=== PATIENT | male | born 1940 | race Caucasian/White ===

== ENCOUNTER 2016-12-15 20:49 | Emergency (ER) | payer MEDICARE, BC ==
[2016-12-15 21:04] VITALS: BP 203/94
--- NOTE | 2016-12-15 21:46 | EDM.PDOC ---
ED HPI GENERAL MEDICAL PROBLEM - General Chief Complaint: Cardiovascular Problem Stated Complaint: HIGH BLOOD PRESSURE Time Seen by Provider: 12/15/16 21:00 Source of Information: Reports: Patient, Family (), RN Notes Reviewed History Limitations: Reports: No Limitations - History of Present Illness INITIAL COMMENTS - FREE TEXT/NARRATIVE: The patient states that he sought Dr. Quiroz earlier today due to a knee problem , and while there, he was told that his blood pressure was elevated, around 195/ 90. He went from there to the clinic, where he was told that his pressure was similarly elevated. He was seen by Dr. Gee who instructed the patient to discontinue his lisinopril, and a new antihypertensive medication was prescribed along with allopurinol. The patient went home. Around 15:00 he checked his own blood pressure and found it to be 154/82 with a HR of 53. At 20:30 he rechecked it again and found it to be 183/106 with a HR of 50, then at 20:40 he checked it again and found it to be 181/102 with a HR of 51. The highest BP here in the ED is 219/95. The patient states that he feels fine. He denies having a headache or blurry vision. - Related Data Allergies Allergy/AdvReac Type Severity Reaction Status Date / Time No Known Allergies Allergy Verified 12/15/16 20:56 Home Meds: Home Meds Albuterol/Ipratropium [Combivent Respimat] 2 puff INH BID 04/04/15 [History] Budesonide/Formoterol [Symbicort 160-4.5 MCG] 2 puff INH BID 04/04/15 [History] Doxazosin Mesylate [Cardura] 4 mg PO DAILY 04/04/15 [History] Furosemide 20 mg PO DAILY 04/04/15 [History] Nebivolol HCl [Bystolic] 10 mg PO DAILY 04/04/15 [History] Omeprazole 20 mg PO DAILY 04/04/15 [History] Diazepam [Valium] 1 tab PO Q8H PRN #16 tablet 11/21/15 [Rx] Past Medical History Cardiovascular History: Reports: High Cholesterol (untreated), Hypertension Respiratory History: Reports: COPD, Sleep Apnea (nightly CPAP 10) Gastrointestinal History: Reports: GERD, PUD Musculoskeletal History: Reports: Gout (suspected) Neurological History: Reports: Neuropathy, Peripheral (left lumbar) - Past Surgical History Neurological Surgical History: Reports: Lumbar Spine (L3, L4 laminectomy 05/2016 ) Musculoskeletal Surgical History: Reports: ORIF (right clavicle) Social & Family History - Tobacco Use Smoking Status *Q: Former Smoker Years of Tobacco use: 20 Packs/Tins Daily: 1 Used Tobacco, but Quit: Yes Month Tobacco Last Used: Around 1976 - Caffeine Use Caffeine Use: Reports: Coffee - Alcohol Use Alcohol Use History: Yes Alcohol Use Frequency: Socially - Recreational Drug Use Recreational Drug Use: No - Living Situation & Occupation Living situation: Reports: , with Spouse Occupation: Retired ED ROS GENERAL - Review of Systems Review Of Systems: See Below Constitutional: Reports: No Symptoms HEENT: Reports: No Symptoms Respiratory: Reports: No Symptoms Cardiovascular: Reports: No Symptoms Endocrine: Reports: No Symptoms GI/Abdominal: Reports: No Symptoms : Reports: No Symptoms Musculoskeletal: Reports: No Symptoms Skin: Reports: No Symptoms Neurological: Reports: No Symptoms Psychiatric: Reports: No Symptoms Hematologic/Lymphatic: Reports: No Symptoms Immunologic: Reports: No Symptoms ED EXAM, GENERAL - Physical Exam Exam: See Below Exam Limited By: No Limitations General Appearance: Alert, WD/WN, No Apparent Distress Eye Exam: Bilateral Eye: Normal Inspection Ears: Normal External Exam, Hearing Grossly Normal Ear Exam: Bilateral Ear: Auricle Normal Nose: Normal Inspection, No Blood Throat/Mouth: Normal Inspection, Normal Lips, Normal Voice, No Airway Compromise Head: Atraumatic, Normocephalic Neck: Normal Inspection, Full Range of Motion Respiratory/Chest: No Respiratory Distress, Lungs Clear, Normal Breath Sounds, No Accessory Muscle Use Cardiovascular: Normal Peripheral Pulses, Regular Rate, Rhythm, No Gallop, No JVD, No Murmur, No Rub Peripheral Pulses: 4+: Radial (L), Radial (R) GI/Abdominal: Normal Bowel Sounds, Soft, Non-Tender, No Organomegaly, No Distention, No Abnormal Bruit, No Mass (Male) Exam: Deferred Rectal (Males) Exam: Deferred Back Exam: Normal Inspection, Full Range of Motion, NT Extremities: Normal Inspection, Normal Range of Motion, No Pedal Edema, Normal Capillary Refill Neurological: Alert, Oriented, Normal Cognition, No Motor/Sensory Deficits Psychiatric: Normal Affect Skin Exam: Warm, Dry, Intact, Normal Color, No Rash Lymphatic: No Adenopathy Course - Vital Signs Last Recorded V/S: Last Vital Signs Temp 35.6 C 12/15/16 20:56 Pulse 53 L 12/15/16 20:56 Resp 16 12/15/16 20:56 BP 203/94 H 12/15/16 20:56 Pulse Ox 96 12/15/16 20:56 - Re-Assessments/Exams Free Text/Narrative Re-Assessment/Exam: 12/15/16 21:39 The patient's blood pressure is elevated, however, not so high that intervention is required, and his blood pressure medications were just changed today. I am recommending that in 2 weeks his begin checking his blood pressure as per guidelines, then followup with their PCP. Departure - Departure Time of Disposition: 21:41 Disposition: Home, Self-Care 01 Condition: good Clinical Impression: Hypertension Instructions: Hypertension Referrals: Russel Mccloud MD [Primary Care Provider] - Forms: ED Department Discharge Additional Instructions: You were seen in the emergency room for concern about elevated blood pressure. The nature of hypertension, and how to measure it, was discussed. Since your blood pressure medicine was just changed today, you do not to check your blood pressure for the next 2 weeks. In 2 weeks, have your check your blood pressure 2 to 3 times a week, for 2 to 3 weeks. This must be done under RESTFUL CONDITIONS, meaning that you are sitting quietly for at least 5, and preferably 15 minutes, that you are not in pain, not anxious, and not ill. Have her write the blood pressure numbers down without telling you their value. After 2-3 weeks, take those numbers to Dr. Mccloud for interpretation. If any other problems, please do not hesitate to return to the ER.
== END 2016-12-15 22:15 | disposition home or self-care (01) ==
LOC: JD.ED 20:49
DX: I10 Essential (primary) hypertension (principal); E78.00 Pure hypercholesterolemia, unspecified; G47.30 Sleep apnea, unspecified; Z98.890 Other specified postprocedural states; Z87.891 Personal history of nicotine dependence; Z79.899 Other long term (current) drug therapy
CPT/HCPCS: 99283

== ENCOUNTER 2016-12-19 10:00 | Emergency (ER) | payer MEDICARE, BC ==
--- NOTE | 2016-12-19 10:48 | EDM.PDOC ---
ED HPI GENERAL MEDICAL PROBLEM - General Chief Complaint: Chest Pain Stated Complaint: CHEST PAIN Time Seen by Provider: 12/19/16 10:46 Source of Information: Reports: Patient, Family (spouse) History Limitations: Reports: No Limitations - History of Present Illness INITIAL COMMENTS - FREE TEXT/NARRATIVE: 76-year-old male presents to the ED with recurrent left precordial chest pains that awoke him from sleep initially about 0530 hours this morning. Pain tends to be sharp and stabbing He has history of coronary disease with previous inferior wall myocardial infarction. He denies feeling any more short of breath than normal. He has a dry chronic hacking cough for which his medication was changed recently. It was thought that perhaps lisinopril was causing him to have the dry nonproductive cough. It was stopped and replaced replaced with Valsartan 320 mg daily. Pain has come and gone about 5 or 6 times this morning. No associated shortness of breath or lightheadedness or dizziness. 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 Onset: Sudden Onset Date: 12/19/16 Onset Time: 05:30 Duration: Hour(s):, Intermittent, Waxing/Waning Location: Reports: Chest Quality: Reports: Sharp, Stabbing Severity: Moderate Improves with: Reports: None Worsens with: Reports: None Context: Denies: Activity, Exercise, Lifting, Sick Contact, Trauma, Other Associated Symptoms: Reports: Chest Pain, Cough. 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: Reports: Other (see below) (No) - Related Data Allergies Allergy/AdvReac Type Severity Reaction Status Date / Time No Known Allergies Allergy Verified 12/19/16 10:11 Home Meds: Home Meds Albuterol/Ipratropium [Combivent Respimat] 2 puff INH BID 04/04/15 [History] Budesonide/Formoterol [Symbicort 160-4.5 MCG] 2 puff INH BID 04/04/15 [History] Doxazosin Mesylate [Cardura] 4 mg PO DAILY 04/04/15 [History] Furosemide 20 mg PO DAILY 04/04/15 [History] Nebivolol HCl [Bystolic] 10 mg PO DAILY 04/04/15 [History] Omeprazole 20 mg PO DAILY 04/04/15 [History] Diazepam [Valium] 1 tab PO Q8H PRN #16 tablet 11/21/15 [Rx] Allopurinol [Zyloprim] 100 mg PO DAILY 12/19/16 [History] Valsartan 320 mg PO DAILY 12/19/16 [History] Past Medical History Cardiovascular History: Reports: High Cholesterol, Hypertension, [place] (Inferior wall by ECG assessment.) Respiratory History: Reports: COPD, Sleep Apnea Other Respiratory History: empysema, Wears a Cpap Gastrointestinal History: Reports: GERD, PUD Musculoskeletal History: Reports: Gout Neurological History: Reports: Neuropathy, Peripheral Other Neuro History: left lateral thigh numbness - Past Surgical History Neurological Surgical History: Reports: Lumbar Spine Other Neurological Surgeries/Procedures: L 3 4 5 Musculoskeletal Surgical History: Reports: ORIF Social & Family History - Tobacco Use Smoking Status *Q: Former Smoker Years of Tobacco use: 20 Packs/Tins Daily: 1 Used Tobacco, but Quit: No Month Tobacco Last Used: Around 1976 - Caffeine Use Caffeine Use: Reports: Coffee - Recreational Drug Use Recreational Drug Use: No - Living Situation & Occupation Living situation: Reports: , with Spouse Occupation: Retired ED ROS GENERAL - Review of Systems Review Of Systems: See Below Constitutional: Denies: Fever, Chills, Malaise, Weakness, Decreased Appetite HEENT: Reports: No Symptoms Respiratory: Reports: Cough. Denies: Shortness of Breath, Wheezing, Pleuritic Chest Pain, Sputum (Nonproductive cough.), Hemoptysis, Other Cardiovascular: Reports: Blood Pressure Problem, Dyspnea on Exertion. Denies: Claudication (Recently hypertension out of control and medications were changed last week), Edema, Lightheadedness, Orthopnea, Palpitations (Sometime) Endocrine: Reports: No Symptoms GI/Abdominal: Reports: No Symptoms : Reports: Other (Nocturia x3. Slow urinary stream) Musculoskeletal: Reports: Back Pain (Tonic low back pain with left-sided paresthesias in L5 nerve root distribution. Previous laminectomy disc discectomy ) Skin: Reports: No Symptoms Neurological: Reports: Numbness, Paresthesia (Left lateral but soft and leg to the knee.), Tingling ED EXAM, GENERAL - Physical Exam Exam: See Below Exam Limited By: No Limitations General Appearance: Alert, WD/WN, Anxious, Mild Distress Eye Exam: Bilateral Eye: Normal Inspection Head: Atraumatic, Other Neck: Normal Inspection, Supple, Non-Tender, Full Range of Motion. No: Carotid Bruit, Lymphadenopathy (L), Lymphadenopathy (R) Respiratory/Chest: No Respiratory Distress, Lungs Clear, Normal Breath Sounds, No Accessory Muscle Use, Other (No identifiable source of pain on palpation of the chest wall.) Cardiovascular: Regular Rate, Rhythm, No Edema, No Gallop, No Murmur, No Rub. No: Normal Peripheral Pulses GI/Abdominal: Normal Bowel Sounds, Soft, Non-Tender, No Organomegaly, No Distention Extremities: Normal Inspection, Normal Range of Motion, Non-Tender, No Pedal Edema, Normal Capillary Refill Neurological: Alert, Oriented, CN II-XII Intact, Normal Cognition, Normal Gait EKG INTERPRETATION EKG Date: 12/19/16 Time: 10:05 Rhythm: other (Sinus bradycardia at 51 per minute) Rate (beats/min): 51 Venus: LAD-left axis deviation (-32. Consider left anterior fascicular block) P-wave: enlarged QRS: other (Borderline criteria for left ventricular hypertrophy Q waves in leads 3 and aVF compatible with an old inferior wall myocardial infarction.) ST-T: normal QT: prolonged (Mildly prolonged) Course - Vital Signs Last Recorded V/S: Last Vital Signs Temp 36.6 C 12/19/16 10:07 Pulse 62 12/19/16 13:25 Resp 12 12/19/16 13:25 BP 148/70 H 12/19/16 13:25 Pulse Ox 100 12/19/16 13:25 - Orders/Labs/Meds Orders: Active Orders 24 hr Category Date Time Status EKG Documentation Completion [RC] STAT Care 12/19/16 11:29 Active Labs: Laboratory Tests 12/19/16 12/19/16 12/19/16 Range/Units 10:12 10:12 10:12 WBC 7.58 (4.23-9.07) K/mm3 RBC 5.13 (4.63-6.08) M/mm3 Hgb 14.5 (13.7-17.5) gm/L Hct 44.7 (40.1-51.0) % MCV 87.1 (79.0-92.2) fl MCH 28.3 (25.7-32.2) pg MCHC 32.4 (32.2-35.5) g/dl RDW Std Deviation 48.2 H (35.1-43.9) fL Plt Count 210 (163-337) K/mm3 MPV 10.8 (9.4-12.3) fl Neutrophils % (Manual) 51 (40-60) % Band Neutrophils % 0 (0-10) % Lymphocytes % (Manual) 28 (20-40) % Atypical Lymphs % 0 % Monocytes % (Manual) 13 H (2-10) % Eosinophils % (Manual) 8 H (0.8-7.0) % Basophils % (Manual) 0 L (0.2-1.2) Platelet Estimate Adequate RBC Morph Comment Normal D-Dimer, Quantitative (0.19-0.59) mg/L Sodium 143 (136-145) mEq/L Potassium 4.2 (3.5-5.1) mEq/L Chloride 109 H (98-107) mEq/L Carbon Dioxide 24 (21-32) mEq/L Anion Gap 14.2 (5-15) BUN 16 (7-18) mg/dL Creatinine 1.1 (0.7-1.3) mg/dL Est Cr Clr Drug Dosing 59.90 mL/min Estimated GFR (MDRD) > 60 (>60) mL/min BUN/Creatinine Ratio 14.5 (14-18) Glucose 110 (83-115) mg/dL Calcium 8.7 (8.5-10.1) mg/dL Total Bilirubin 0.4 (0.2-1.0) mg/dL AST 33 (15-37) U/L ALT 36 (16-63) U/L Alkaline Phosphatase 99 (46-116) U/L Creatine Kinase (39-308) U/L CK-MB (CK-2) 21.3 H (0-3.6) ng/ml Troponin I 0.024 (0.00-0.056) ng/mL C-Reactive Protein 1.7 H* (<1.0) mg/dL B-Natriuretic Peptide 128 H (0-100) pg/mL Total Protein 7.3 (6.4-8.2) g/dl Albumin 3.8 (3.4-5.0) g/dl Globulin 3.5 gm/dL Albumin/Globulin Ratio 1.1 (1-2) TSH 3rd Generation (0.358-3.74) uIU/mL 12/19/16 12/19/16 Range/Units 10:12 10:12 WBC (4.23-9.07) K/mm3 RBC (4.63-6.08) M/mm3 Hgb (13.7-17.5) gm/L Hct (40.1-51.0) % MCV (79.0-92.2) fl MCH (25.7-32.2) pg MCHC (32.2-35.5) g/dl RDW Std Deviation (35.1-43.9) fL Plt Count (163-337) K/mm3 MPV (9.4-12.3) fl Neutrophils % (Manual) (40-60) % Band Neutrophils % (0-10) % Lymphocytes % (Manual) (20-40) % Atypical Lymphs % % Monocytes % (Manual) (2-10) % Eosinophils % (Manual) (0.8-7.0) % Basophils % (Manual) (0.2-1.2) Platelet Estimate RBC Morph Comment D-Dimer, Quantitative 1.03 H (0.19-0.59) mg/L Sodium (136-145) mEq/L Potassium (3.5-5.1) mEq/L Chloride (98-107) mEq/L Carbon Dioxide (21-32) mEq/L Anion Gap (5-15) BUN (7-18) mg/dL Creatinine (0.7-1.3) mg/dL Est Cr Clr Drug Dosing mL/min Estimated GFR (MDRD) (>60) mL/min BUN/Creatinine Ratio (14-18) Glucose (83-115) mg/dL Calcium (8.5-10.1) mg/dL Total Bilirubin (0.2-1.0) mg/dL AST (15-37) U/L ALT (16-63) U/L Alkaline Phosphatase (46-116) U/L Creatine Kinase 497 H (39-308) U/L CK-MB (CK-2) (0-3.6) ng/ml Troponin I (0.00-0.056) ng/mL C-Reactive Protein (<1.0) mg/dL B-Natriuretic Peptide (0-100) pg/mL Total Protein (6.4-8.2) g/dl Albumin (3.4-5.0) g/dl Globulin gm/dL Albumin/Globulin Ratio (1-2) TSH 3rd Generation 1.571 (0.358-3.74) uIU/mL - Radiology Interpretation Free Text/Narrative:: 76-year-old male presents the ED with intermittent left precordial chest pain in the distribution of the fourth fifth intercostal space. Pain is intermittently sharp and stabbing in seems to be be positional at times. Unable to localize any source of pain on examination. ECG shows sinus bradycardia at 51 per minutes with some evidence of left ventricular hypertrophy and evidence of an old inferior wall myocardial infarction. Pain is not felt to be cardiac it is likely musculoskeletal by history alone. Plan a chest x-ray will be done with routine labs to include cardiac markers. - Re-Assessments/Exams Free Text/Narrative Re-Assessment/Exam: 12/19/16 11:53 portable chest x-ray reveals mild cardiomegaly. Visualized lung prasad are clear. There is soft tissue density overlying the left costophrenic angle. Lab work revealed a normal white count at 7.58 a normal hemoglobin of 14.5. Platelets 210,000. Chemistry shows a sodium of 143 potassium 4.2 chloride 109. Anion gap is 14.2. Fatty was 1.1. CK-MB fraction is elevated at 21.3. Troponin is normal at 0.024. BP is 128. I therefore elect total CPK as well as a TSH to see why the CK-MB is elevated without an elevated troponin. It is felt to be unlikely due to a cardiac component. 12/19/16 13:00 TSH 1.57 . Total CPK is elevated at 497. If I think the CK-MB fraction is elevated secondary to total CPK elevation. Of note reason for the total CPK elevation is not evident. He is not on any statins according to his med list. He'll be discharged to home. Diagnosis is noncardiac chest pain. He' ll be discharged to home. Advise when he sees Dr. Flores in the next few weeks for blood pressure review . It might be worthwhile having labs drawn again to see what his total CPK value is. No obvious etiology for this is identified since his thyroid function is also normal. Occult disease process such as developing polymyalgia rheumatica .? Departure - Departure Time of Disposition: 13:11 Disposition: Home, Self-Care 01 Condition: fair Clinical Impression: Non-cardiac chest pain, Chest wall pain, Elevated creatine phosphokinase level Instructions: Chest Wall Pain, [id number] Referrals: Russel Mccloud MD [Primary Care Provider] - Forms: ED Department Discharge Additional Instructions: Evaluation in the emergency room today in regards to left precordial chest pain that started bothering about 5:30 this morning. Pain is intermittent sharp and stabbing. Examination reveals normal sounding heart and lungs. Chest x-ray crew to be normal as well heart tracings revealed evidence of a likely old heart attack involving the back wall of the heart but nothing new. Blood tests were therefore done and revealed an elevation of one of the cardiac markers called CK -MB. Further blood tests were then required to make sure that there was no connection to the heart muscle. The total CPK is elevated for an unknown reason. Usually represents and inflammation in the muscle tissues. There is no evidence of heart related problems today. Currently pain is chest wall in origin likely muscles in between the ribs between the fourth and fifth rib on the left side. Treatment is Aleve 2 tablets every 8 hours as needed to relieve pain and discomfort. The spectra may need to do this for the next 3 or 4 days but then it should go away. If it continues to get worse cough over the next 3- 4 days then he should be seen again. - My Orders Last 24 Hours: My Active Orders 12/19/16 11:29 EKG Documentation Completion [RC] STAT - Assessment/Plan Last 24 Hours: My Active Orders 12/19/16 11:29 EKG Documentation Completion [RC] STAT
--- NOTE | 2016-12-19 11:42 | CR ---
Chest: Portable view of the chest was obtained. Comparison: Previous chest x-ray 04/04/15. Heart size and mediastinum are normal. Minimal scarring is seen within the left base. Lungs otherwise are clear. Orthopedic material is seen within the right clavicle from previous fracture. No acute bony abnormality is seen. Impression: 1. Nothing acute is seen on portable chest x-ray. Diagnostic code #2
[2016-12-19 14:05] VITALS: BP 148/70
== END 2016-12-19 13:30 | disposition home or self-care (01) ==
LOC: JD.ED 10:00
DX: R07.89 Other chest pain (principal); R74.8 Abnormal levels of other serum enzymes; I25.2 Old myocardial infarction; I10 Essential (primary) hypertension; E78.00 Pure hypercholesterolemia, unspecified; K21.9 Gastro-esophageal reflux disease without esophagitis; J44.9 Chronic obstructive pulmonary disease, unspecified; M10.9 Gout, unspecified; Z98.890 Other specified postprocedural states; Z79.899 Other long term (current) drug therapy; Z87.891 Personal history of nicotine dependence
CPT/HCPCS: 36415; 71010; 71010-26; 80053; 82550; 82553; 83880; 84443; 84484; 85025; 85379; 86140; 93005; 99282; 99285-25

== ENCOUNTER 2019-03-16 15:59 | Emergency (ER) | payer MEDICARE, BC ==
[2019-03-16 16:53] VITALS: BP 145/88
--- NOTE | 2019-03-16 17:41 | EDM.PDOC ---
ED HPI GENERAL MEDICAL PROBLEM - General Chief Complaint: Skin Complaint Stated Complaint: WOUND ON BACK Time Seen by Provider: 03/16/19 17:23 Source of Information: Reports: Patient History Limitations: Reports: No Limitations - History of Present Illness INITIAL COMMENTS - FREE TEXT/NARRATIVE: 78 year old male presents for evaluation of a wound to the back. Patient has a mole removed with Dr. Kruse on 03/04/19. He felt that it was infected and follow- up with Sosa Carvajal NP. Area was opened and packed. No anabiotics started. Followed-up with PCP but did not feel antibiotics were indicated. Feels the wound is not healing. has been packing the wound daily. Has appreciated pus from the area. Also has slight swelling, surrounding erythema and increased warmth. Manny any fevers, chills, nausea or vomiting. - Related Data Allergies Allergy/AdvReac Type Severity Reaction Status Date / Time No Known Allergies Allergy Verified 12/19/16 10:11 Home Meds: Home Meds Albuterol/Ipratropium [Combivent Respimat] 2 puff INH BID 04/04/15 [History] Budesonide/Formoterol [Symbicort 160-4.5 MCG] 2 puff INH BID 04/04/15 [History] Doxazosin Mesylate [Cardura] 4 mg PO DAILY 04/04/15 [History] Furosemide 20 mg PO DAILY 04/04/15 [History] Nebivolol HCl [Bystolic] 10 mg PO DAILY 04/04/15 [History] Omeprazole 20 mg PO DAILY 04/04/15 [History] Diazepam [Valium] 1 tab PO Q8H PRN #16 tablet 11/21/15 [Rx] Allopurinol [Zyloprim] 100 mg PO DAILY 12/19/16 [History] Valsartan 320 mg PO DAILY 12/19/16 [History] Doxycycline [Vibramycin] 100 mg PO DAILY #20 tab 03/16/19 [Rx] Past Medical History Cardiovascular History: Reports: High Cholesterol, Hypertension, [place] (Inferior wall by ECG assessment.) Respiratory History: Reports: COPD, Sleep Apnea Other Respiratory History: empysema, Wears a Cpap Gastrointestinal History: Reports: GERD, PUD Musculoskeletal History: Reports: Gout Neurological History: Reports: Neuropathy, Peripheral Other Neuro History: left lateral thigh numbness - Past Surgical History Neurological Surgical History: Reports: Lumbar Spine Other Neurological Surgeries/Procedures: L 3 4 5 Musculoskeletal Surgical History: Reports: ORIF Social & Family History - Caffeine Use Caffeine Use: Reports: Coffee - Living Situation & Occupation Living situation: Reports: , with Spouse Occupation: Retired ED ROS GENERAL - Review of Systems Review Of Systems: See Below Constitutional: Denies: Fever, Chills GI/Abdominal: Denies: Nausea, Vomiting Skin: Reports: Wound (wound from recent mole removal packed, surrounding erythema , prurletn discharge from area) ED EXAM, SKIN/RASH Exam: See Below Exam Limited By: No Limitations General Appearance: Alert, WD/WN, No Apparent Distress Respiratory/Chest: No Respiratory Distress Neurological: Alert, Oriented, Normal Cognition, Normal Gait Psychiatric: Normal Affect, Normal Mood Skin: Warm, Dry, Normal Color, Erythema, Wound/Incision (approximately 1cm wound from recent mole removal, packed, necrotic tissue presnet in the inside of the wound, minor surrounding erythema, when presure was applied to the wound able to express prurlent materal from the surrounding area, small amount; increased warmth and small amount of swelling noted) Location, Skin: Back Course - Vital Signs Last Recorded V/S: Last Vital Signs Temp 97.7 F 03/16/19 16:42 Pulse 88 03/16/19 16:42 Resp 18 03/16/19 16:42 BP 145/88 H 03/16/19 16:42 Pulse Ox 100 03/16/19 16:42 - Re-Assessments/Exams Free Text/Narrative Re-Assessment/Exam: 03/16/19 17:33 culture obtained of the area. Will start on antibiotics. Discharge instructions as documented. Departure - Departure Time of Disposition: 17:38 Disposition: Home, Self-Care 01 Condition: Good Clinical Impression: Cellulitis - Discharge Information *PRESCRIPTION DRUG MONITORING PROGRAM REVIEWED*: No *COPY OF PRESCRIPTION DRUG MONITORING REPORT IN PATIENT NERI: No Prescriptions: Doxycycline [Vibramycin] 100 mg PO DAILY #20 tab Instructions: Cellulitis, Adult, [id number] Referrals: Dennsi Terrell MD [Primary Care Provider] - Forms: ED Department Discharge Additional Instructions: Follow-up with your surgeon or your primary care provider as planned for further management of this. Doxycycline 1 tab twice a day for 10 days unless directed otherwise by surgery or your primary care provider. Continue to pack the wound daily as instructed. may take [id number] Tylenol or Motrin as need for pain relief. Please return to the ER if your symptoms change or worsen.
== END 2019-03-16 18:06 | disposition home or self-care (01) ==
LOC: JD.ED 15:59
DX: L03.312 Cellulitis of back [any part except buttock and flank] (principal); J44.9 Chronic obstructive pulmonary disease, unspecified; I10 Essential (primary) hypertension; I25.2 Old myocardial infarction; K21.9 Gastro-esophageal reflux disease without esophagitis; Z79.899 Other long term (current) drug therapy
CPT/HCPCS: 87070; 99283

== ENCOUNTER 2020-05-15 21:13 | Day surgery (SDC) | payer MEDICARE, BC ==
[2020-05-15] MEDS ORDERED: fentaNYL 100 MCG/2 ML SDV IVPUSH ONE (21:43)
[2020-05-15] MEDS ORDERED: Sodium Chloride 0.9% 10 ML Syringe FLUSH PRN (21:43)
[2020-05-15] MEDS ORDERED: Glucagon,Human Recombinant 1 MG Vial IVPUSH ONE (21:43)
[2020-05-15] MEDS ORDERED: Metoclopramide 10 MG/2 ML SDV IVPUSH ONE (21:43)
--- NOTE | 2020-05-15 21:48 | EDM.PDOC ---
<Esme Umaña V - Last Filed: 05/15/20 23:50> ED HPI GENERAL MEDICAL PROBLEM - General Chief Complaint: General Stated Complaint: COUGHING UP MUCUS Time Seen by Provider: 05/15/20 21:39 Source of Information: Reports: Patient, RN Notes Reviewed History Limitations: Reports: No Limitations - History of Present Illness INITIAL COMMENTS - FREE TEXT/NARRATIVE: Patient is an 80-year-old male who presents to the ED for the evaluation of his difficulty swallowing. Patient states that around 5:30 PM, he was eating some beef, carrots and potatoes, when he had a feeling of not being able to swallow, or keep any fluids down by mouth shortly after eating the beef. He notes he has never had an issue with this before. He is not having any other signs or sy mptoms of respiratory illness, no shortness of breath, states he is having some cough but he is coughing up a clear mucus. He is not having any sore throat, or any chest pain. He has been feeling well prior to this. He has a little bit of nausea, he has not vomited but is spitting up clear mucus. - Related Data Allergies Allergy/AdvReac Type Severity Reaction Status Date / Time No Known Allergies Allergy Verified 05/15/20 21:25 Home Meds: Home Meds Albuterol/Ipratropium [Combivent Respimat] 2 puff INH BID 04/04/15 [History] Budesonide/Formoterol [Symbicort 160-4.5 MCG] 2 puff INH BID 04/04/15 [History] Doxazosin Mesylate [Cardura] 4 mg PO DAILY 04/04/15 [History] Furosemide 20 mg PO DAILY 04/04/15 [History] Nebivolol HCl [Bystolic] 10 mg PO DAILY 04/04/15 [History] Omeprazole 20 mg PO DAILY 04/04/15 [History] diazePAM [Valium] 1 tab PO Q8H PRN #16 tablet 11/21/15 [Rx] Allopurinol [Zyloprim] 100 mg PO DAILY 12/19/16 [History] Valsartan 320 mg PO DAILY 12/19/16 [History] Doxycycline [Vibramycin] 100 mg PO DAILY #20 tab 03/16/19 [Rx] Past Medical History Cardiovascular History: Reports: High Cholesterol, Hypertension, [place] (Inferior wall by ECG assessment.) Respiratory History: Reports: COPD, Sleep Apnea Other Respiratory History: empysema, Wears a Cpap Gastrointestinal History: Reports: GERD, PUD Musculoskeletal History: Reports: Gout Neurological History: Reports: Neuropathy, Peripheral Other Neuro History: left lateral thigh numbness - Past Surgical History Neurological Surgical History: Reports: Lumbar Spine Other Neurological Surgeries/Procedures: L 3 4 5 Musculoskeletal Surgical History: Reports: ORIF Social & Family History - Caffeine Use Caffeine Use: Reports: Coffee - Living Situation & Occupation Living situation: Reports: , with Spouse Occupation: Retired ED ROS GENERAL - Review of Systems Review Of Systems: Comprehensive ROS is negative, except as noted in HPI. ED EXAM, GENERAL - Physical Exam Exam: See Below Exam Limited By: No Limitations General Appearance: Alert, WD/WN, No Apparent Distress Throat/Mouth: Normal Inspection, Other (pt has active emesis/coughing up clear mucus) Respiratory/Chest: No Respiratory Distress, Lungs Clear, Normal Breath Sounds, No Accessory Muscle Use, Chest Non-Tender Cardiovascular: Normal Peripheral Pulses, Regular Rate, Rhythm, No Murmur Peripheral Pulses: 2+: Radial (L), Radial (R) Extremities: Normal Inspection, Normal Capillary Refill Neurological: Alert, Oriented, Normal Cognition, No Motor/Sensory Deficits Psychiatric: Normal Affect, Normal Mood Skin Exam: Warm, Dry, Intact, Normal Color, No Rash #1 Interpretation EKG Date: 05/15/20 Time: 23:22 Rhythm: NSR Rate (Beats/Min): 64 [place]: Normal P-Wave: Present QRS: Normal ST-T: Normal QT: Normal EKG Interpretation Comments: No obvious ischemia or acute ST changes noted, reviewed by myself and Dr. Guy Course - Re-Assessments/Exams Free Text/Narrative Re-Assessment/Exam: 05/15/20 23:14 Patient presents to the ED for a suspected food impaction bolus. Reglan, fentanyl and glucagon were given for initial attempts at passage of the bolus, patient still having some issues swallowing, and is feeling nauseous. At this time I did call Dr. Ghosh for possible EGD, and he states that if in this patient is in no visible respiratory distress, he would like to wait till tomorrow morning. I did explain this with the patient, and he seems okay with this as well. We will get some fluids, LR started at 75 mils per hour and have Dr. Ghosh follow-up with him in the morning. COVID test has been ordered and is pending at this time. Dr. Ghosh also requested a EKG for preop purposes. Departure - Departure Time of Disposition: 23:16 Disposition: DC/Tfer to [facility] Condition: Good Clinical Impression: Food impaction of esophagus Qualifiers: Encounter type: initial encounter Qualified Code(s): T18.128A - Food in esophagus causing other injury, initial encounter - Discharge Information Referrals: Dennis Terrell MD [Primary Care Provider] - Forms: ED Department Discharge Sepsis Event Note (ED) - Evaluation Sepsis Screening Result: No Definite Risk <Vaibhav Guy - Last Filed: 05/16/20 04:05> Course - Vital Signs Last Recorded V/S: Last Vital Signs Temp 36.1 C 05/15/20 21:17 Pulse 69 05/16/20 02:45 Resp 18 05/16/20 02:45 BP 142/60 H 05/16/20 02:45 Pulse Ox 94 L 05/16/20 02:45 - Orders/Labs/Meds Orders: Active Orders 24 hr Category Date Time Status Communication Order [RC] ASDIRECTED Care 05/15/20 21:43 Active EKG Documentation Completion [RC] STAT Care 05/15/20 23:09 Active Peripheral IV Care [RC] . DIRECTED Care 05/15/20 21:43 Active NPO After Midnight [Nothing per Oral After Midnight Diet 05/15/20 Dinner Active Diet] [DIET] Lactated Ringers [Ringers, Lactated] 1,000 ml Med 05/15/20 23:24 Active IV ASDIRECTED Sodium Chloride 0.9% [Saline Flush] Med 05/15/20 21:43 Active 10 ml FLUSH ASDIRECTED PRN Peripheral IV Insertion Adult [OM.PC] Routine Oth 05/15/20 21:43 Ordered Medication Orders Lactated Ringer's (Ringers, Lactated) 1,000 mls @ 75 mls/hr IV ASDIRECTED MISAEL Last Admin: 05/16/20 00:11 Dose: 75 mls/hr Documented by: JOEY Sodium Chloride (Saline Flush) 10 ml FLUSH ASDIRECTED PRN PRN Reason: Keep Vein Open Last Admin: 05/15/20 21:53 Dose: 10 ml Documented by: JOEY Labs: Laboratory Tests 05/15/20 Range/Units 23:12 SARS-CoV-2 RNA (JUNAIS) Negative (NEGATIVE) Meds: Medications Generic Name Dose Route Start Last Admin Trade Name Tommy PRN Reason Stop Dose Admin Lactated Ringer's 1,000 mls @ 75 mls/hr 05/15/20 23:24 05/16/20 00:11 Ringers, Lactated IV 75 mls/hr ASDIRECTED MISAEL Administration Sodium Chloride 10 ml 05/15/20 21:43 05/15/20 21:53 Saline Flush FLUSH 10 ml ASDIRECTED PRN Administration Keep Vein Open Discontinued Medications Generic Name Dose Route Start Last Admin Trade Name Tommy PRN Reason Stop Dose Admin Fentanyl 50 mcg 05/15/20 21:43 05/15/20 22:01 Sublimaze IVPUSH 05/15/20 21:44 50 mcg ONETIME ONE Administration Glucagon 1 mg 05/15/20 21:43 05/15/20 22:37 Glucagen IVPUSH 05/15/20 21:44 1 mg ONETIME ONE Administration Metoclopramide HCl 10 mg 05/15/20 21:43 05/15/20 21:59 Reglan IVPUSH 05/15/20 21:44 10 mg ONETIME ONE Administration - Re-Assessments/Exams Free Text/Narrative Re-Assessment/Exam: 05/16/20 04:03 Patient is doing well through the night. He can sip fluids but not much else at this time. He seems to be getting some rest. Sepsis Event Note (ED) - Focused Exam Vital Signs: Vital Signs Temp Pulse Resp BP Pulse Ox 05/16/20 02:45 69 18 142/60 H 94 L 05/16/20 00:13 59 L 13 142/62 H 93 L 05/15/20 21:17 36.1 C 56 L 20 160/92 H 94 L
[2020-05-15] MEDS ORDERED: Lactated Ringers 1,000 ML IV SCH (23:24)
[2020-05-16] MEDS ORDERED: Rocuronium 50 MG/5 ML Vial ONE (07:40)
[2020-05-16] MEDS ORDERED: Lidocaine 1% 4 ML ONE (07:40)
[2020-05-16] MEDS ORDERED: Propofol 200 MG/20 ML SDV ONE ×2 (07:40→08:48)
[2020-05-16] MEDS ORDERED: Succinylcholine/Sod PF 100 MG/5 ML SYRINGE IV ONE (07:40)
[2020-05-16] MEDS ORDERED: fentaNYL 100 MCG/2 ML SDV ONE ×2 (07:41→09:10)
[2020-05-16] MEDS ORDERED: Albuterol/Ipratropium 3.0-0.5 MG/3 ML Neb Soln NEB ONE ×2 (07:58→08:12)
--- NOTE | 2020-05-16 08:10 | PCM.PREANE ---
Preanesthetic Assessment - Procedure Proposed Procedure: Food bolus removal in esophagus - Anesthesia/Transfusion/Family Hx Anesthesia History: Prior Anesthesia Without Reaction Family History of Anesthesia Reaction: No Additional History: Back surgeries without sequelae - Review of Systems General: No Symptoms Pulmonary: Other (COPD with mucous production from food bolus) Cardiovascular: No Symptoms Gastrointestinal: No Symptoms Neurological: No Symptoms Other: Reports: None - Physical Assessment NPO Status Date: 05/15/20 NPO Status Time: 22:00 Vital Signs: Last Vital Signs Temp 36.1 C 05/15/20 21:17 Pulse 69 05/16/20 02:45 Resp 18 05/16/20 02:45 BP 142/60 H 05/16/20 02:45 Pulse Ox 94 L 05/16/20 02:45 Height: 5 ft 11 in Weight: 92.986 kg ASA Class: 2 Mental Status: Alert & Oriented x3 Airway Class: Mallampati = 2 Dentition: Reports: Normal Dentition Thyro-Mental Finger Breadths: 3 Mouth Opening Finger Breadths: 3 ROM/Head Extension: Full Lungs: Clear to Auscultation, Normal Respiratory Effort Cardiovascular: Regular Rate, Regular Rhythm - Lab Values: Laboratory Last Values SARS-CoV-2 RNA (JUANIS) Negative (NEGATIVE) 05/15/20 23:12 - Allergies Allergies/Adverse Reactions: Allergies Allergy/AdvReac Type Severity Reaction Status Date / Time No Known Allergies Allergy Verified 05/15/20 21:25 - Anesthesia Plan Pre-Op Medication Ordered: Other (DuoNeb treatment prior to procedure to be received in ER) Beta Michaelle: Other (patient takes Nebivolol 10mg daily - none on formulary - will consider beta michaelle if heart rate is increased during intraoperative phases) - Acknowledgements Anesthesia Type Planned: General Anesthesia Pt an Appropriate Candidate for the Planned Anesthesia: Yes Alternatives and Risks of Anesthesia Discussed w Pt/Guardian: Yes Pt/Guardian Understands and Agrees with Anesthesia Plan: Yes PreAnesthesia Questionnaire Cardiovascular History: Reports: High Cholesterol, Hypertension, [place] (Inferior wall by ECG assessment.) Respiratory History: Reports: COPD, Sleep Apnea Other Respiratory History: empysema, Wears a Cpap Gastrointestinal History: Reports: GERD, PUD Musculoskeletal History: Reports: Gout Neurological History: Reports: Neuropathy, Peripheral Other Neuro History: left lateral thigh numbness - Past Surgical History Neurological Surgical History: Reports: Lumbar Spine Other Neurological Surgeries/Procedures: L 3 4 5 Musculoskeletal Surgical History: Reports: ORIF - SUBSTANCE USE Tobacco Use Status *Q: Former Tobacco User Recreational Drug Use History: No - HOME MEDS Home Medications: Home Meds Albuterol/Ipratropium [Combivent Respimat] 2 puff INH BID 04/04/15 [History] Budesonide/Formoterol [Symbicort 160-4.5 MCG] 2 puff INH BID 04/04/15 [History] Doxazosin Mesylate [Cardura] 4 mg PO DAILY 04/04/15 [History] Furosemide 20 mg PO DAILY 04/04/15 [History] Nebivolol HCl [Bystolic] 10 mg PO DAILY 04/04/15 [History] Omeprazole 20 mg PO DAILY 04/04/15 [History] diazePAM [Valium] 1 tab PO Q8H PRN #16 tablet 11/21/15 [Rx] Allopurinol [Zyloprim] 100 mg PO DAILY 12/19/16 [History] Valsartan 320 mg PO DAILY 12/19/16 [History] Doxycycline [Vibramycin] 100 mg PO DAILY #20 tab 03/16/19 [Rx] - CURRENT (IN HOUSE) MEDS Current Meds: Current Medications Lactated Ringer's (Ringers, Lactated) 1,000 mls @ 75 mls/hr IV ASDIRECTED MISAEL Last Admin: 05/16/20 00:11 Dose: 75 mls/hr Documented by: Sodium Chloride (Saline Flush) 10 ml FLUSH ASDIRECTED PRN PRN Reason: Keep Vein Open Last Admin: 05/15/20 21:53 Dose: 10 ml Documented by: Discontinued Medications Albuterol/Ipratropium (Duoneb 3.0-0.5 Mg/3 Ml) 3 ml NEB ONETIME ONE Stop: 05/16/20 07:59 Fentanyl (Sublimaze) 50 mcg IVPUSH ONETIME ONE Stop: 05/15/20 21:44 Last Admin: 05/15/20 22:01 Dose: 50 mcg Documented by: Fentanyl (Sublimaze) Confirm Administered Dose 100 mcg .ROUTE .STK-MED ONE Stop: 05/16/20 07:42 Glucagon (Glucagen) 1 mg IVPUSH ONETIME ONE Stop: 05/15/20 21:44 Last Admin: 05/15/20 22:37 Dose: 1 mg Documented by: Lidocaine HCl (Xylocaine-Mpf 1%) Confirm Administered Dose 4 mls @ as directed .ROUTE .STK-MED ONE Stop: 05/16/20 07:41 Metoclopramide HCl (Reglan) 10 mg IVPUSH ONETIME ONE Stop: 05/15/20 21:44 Last Admin: 05/15/20 21:59 Dose: 10 mg Documented by: Propofol (Diprivan 20 Ml) Confirm Administered Dose 200 mg .ROUTE .STK-MED ONE Stop: 05/16/20 07:41 Rocuronium [place] (Zemuron) Confirm Administered Dose 50 mg .ROUTE .STK-MED ONE Stop: 05/16/20 07:41
[2020-05-16] MEDS ORDERED: Sodium Chloride 0.9% 10 ML Syringe FLUSH PRN (08:13)
[2020-05-16] MEDS ORDERED: Lidocaine 1%/Sod Bicarbonate in NS 8.4% 1 ML Syringe IDERM PRN (08:13)
[2020-05-16] MEDS ORDERED: fentaNYL 100 MCG/2 ML SDV IVPUSH PRN (08:13)
[2020-05-16] MEDS ORDERED: Ondansetron 4 MG/2 ML SDV IVPUSH PRN (08:13)
[2020-05-16] MEDS ORDERED: HYDROmorphone 0.5 MG/0.5 ML Syringe IVPUSH PRN (08:13)
--- NOTE | 2020-05-16 08:14 | PCM.CONS ---
H&P History of Present Illness - General Date of Service: 05/16/20 Admit Problem/Dx: Admission Diagnosis/Problem Admission Diagnosis/Problem Foreign body in digestive tract Source of Information: Patient History Limitations: Reports: No Limitations - History of Present Illness Initial Comments - Free Text/Narative: Patient presents with esophageal food impaction. He was eating beef, potatoes and carrots around 1730 yesterday and felt something stuck in his chest. From that point on, He would not swallow any more food. When he tried it came up. He has long history of heartburn and takes medications for it which control the symptoms. He has had two prior episodes of feeling of food getting stuck in his chest but these lasted about 10 minutes each and resolved. This has lasted much longer. Denies any esophageal or abdominal operations. No blood thinners except baby ASA. Onset of Symptoms: Reports: Sudden Duration of Symptoms: Reports: Hour(s): (15), Day(s): (1), Constant Location: Reports: Chest Quality: Reports: Other (foos stuck) Severity: Mild Improves with: Reports: None Worsens with: Reports: None Associated Symptoms: Reports: Other (cant swallow) Epigastric Pain Score (Numeric/FACES): 3 - Related Data Allergies/Adverse Reactions: Allergies Allergy/AdvReac Type Severity Reaction Status Date / Time No Known Allergies Allergy Verified 05/15/20 21:25 Home Medications: Home Meds Albuterol/Ipratropium [Combivent Respimat] 2 puff INH BID 04/04/15 [History] Budesonide/Formoterol [Symbicort 160-4.5 MCG] 2 puff INH BID 04/04/15 [History] Doxazosin Mesylate [Cardura] 4 mg PO DAILY 04/04/15 [History] Furosemide 20 mg PO DAILY 04/04/15 [History] Nebivolol HCl [Bystolic] 10 mg PO DAILY 04/04/15 [History] Omeprazole 20 mg PO DAILY 04/04/15 [History] diazePAM [Valium] 1 tab PO Q8H PRN #16 tablet 11/21/15 [Rx] Allopurinol [Zyloprim] 100 mg PO DAILY 12/19/16 [History] Valsartan 320 mg PO DAILY 12/19/16 [History] Doxycycline [Vibramycin] 100 mg PO DAILY #20 tab 03/16/19 [Rx] Past Medical History Cardiovascular History: Reports: High Cholesterol, Hypertension, [place] (Inferior wall by ECG assessment.) Respiratory History: Reports: COPD, Sleep Apnea Other Respiratory History: empysema, Wears a Cpap Gastrointestinal History: Reports: GERD, PUD Musculoskeletal History: Reports: Gout Neurological History: Reports: Neuropathy, Peripheral Other Neuro History: left lateral thigh numbness - Past Surgical History Neurological Surgical History: Reports: Lumbar Spine Other Neurological Surgeries/Procedures: L 3 4 5 Musculoskeletal Surgical History: Reports: ORIF Social & Family History - Tobacco Use Tobacco Use Status *Q: Former Tobacco User Used Tobacco, but Quit: Yes Month/Year Tobacco Last Used: 1979 - Caffeine Use Caffeine Use: Reports: Coffee - Recreational Drug Use Recreational Drug Use: No - Living Situation & Occupation Living situation: Reports: , with Spouse Occupation: Retired H&P Review of Systems - Review of Systems: Review Of Systems: See Below General: Reports: No Symptoms HEENT: Reports: No Symptoms Pulmonary: Reports: No Symptoms Cardiovascular: Reports: No Symptoms Gastrointestinal: Reports: Difficulty Swallowing Genitourinary: Reports: No Symptoms Musculoskeletal: Reports: No Symptoms Skin: Reports: No Symptoms Psychiatric: Reports: No Symptoms Exam - Exam Exam: See Below - Vital Signs Vital Signs: Last Vital Signs Temp 97.0 F 05/15/20 21:17 Pulse 69 05/16/20 02:45 Resp 18 05/16/20 02:45 BP 142/60 H 05/16/20 02:45 Pulse Ox 94 L 05/16/20 02:45 Weight: 92.986 kg - Exam General: Alert, Oriented, Cooperative HEENT: Conjunctiva Clear Neck: Supple, Trachea Midline, Full Range of Motion, Other (no crepitus) Lungs: Clear to Auscultation, Normal Respiratory Effort Cardiovascular: Regular Rate, Regular Rhythm, Normal S1, Normal S2 GI/Abdominal Exam: Soft, Non-Tender, No Organomegaly, No Distention, No Abnormal Bruit - Patient Data Lab Results Last 24 hrs: Laboratory Results - last 24 hr 05/15/20 Range/Units 23:12 SARS-CoV-2 RNA (JUANIS) Negative (NEGATIVE) Sepsis Event Note - Evaluation Sepsis Screening Result: No Definite Risk - Focused Exam Vital Signs: Vital Signs Temp Pulse Resp BP Pulse Ox 05/16/20 02:45 69 18 142/60 H 94 L 05/16/20 00:13 59 L 13 142/62 H 93 L 05/15/20 21:17 97.0 F 56 L 20 160/92 H 94 L Consult PN Assessment/Plan Procedures: Procedures ASSAY OF CK (CPK) (12/19/16) ASSAY OF CREATININE (02/27/18) ASSAY OF NATRIURETIC PEPTIDE (12/19/16) ASSAY OF TROPONIN QUANT (12/19/16) ASSAY THYROID STIM HORMONE (12/19/16) C-REACTIVE PROTEIN (12/19/16) CHEST X-RAY 1 VIEW FRONTAL (12/19/16) CHEST X-RAY 2VW FRONTAL&LATL (04/04/15) COMPLETE CBC W/AUTO DIFF WBC (12/19/16) COMPREHEN METABOLIC PANEL (12/19/16) CREATINE MB FRACTION (12/19/16) CT HEAD/BRAIN W/O DYE (11/18/15) CT SOFT TISSUE NECK W/DYE (07/22/14) CULTURE OTHR SPECIMN AEROBIC (03/16/19) ELECTROCARDIOGRAM TRACING (12/19/16) EMERGENCY DEPT VISIT (03/16/19) EMERGENCY DEPT VISIT (12/19/16) EMERGENCY DEPT VISIT (12/15/16) EMERGENCY DEPT VISIT (04/04/15) FIBRIN DEGRADATION QUANT (12/19/16) MANUAL THERAPY 1/> REGIONS (08/30/16) MASSAGE THERAPY (07/28/16) MRI LUMBAR SPINE W/DYE (02/28/18) MRI LUMBAR SPINE W/O DYE (02/23/18) NEUROMUSCULAR REEDUCATION (08/30/16) PT EVALUATION (07/28/16) ROUTINE VENIPUNCTURE (02/27/18) THERAPEUTIC EXERCISES (09/02/16) THROMBOPLASTIN TIME PARTIAL (01/18/16) UPR/LXTR ART STDY 3+ LVLS (05/14/14) X-RAY EXAM L-2 SPINE 4/>VWS (03/12/18) X-RAY EXAM L-S SPINE 2/3 VWS (05/11/16) X-RAY EXAM OF KNEE 3 (11/10/16) X-RAY EXAM OF PELVIS (03/12/18) Problem List Initiated/Reviewed/Updated: No My Orders Last 24 Hours: My Active Orders 05/16/20 07:59 RT Aerosol Therapy [RC] ASDIRECTED Plan: Patient has esophageal food impaction. I recommended EGD, FB removal, possible dilation. I discussed with the patient risks, benefits and alternatives. Risks discussed include bleeding and perforation. Patient verbalized understanding and informed consent was obtained. 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 We will proceed with the procedure.
[2020-05-16] MEDS ORDERED: Lactated Ringers 1,000 ML IV SCH (08:15)
[2020-05-16] MEDS ORDERED: ePHEDrine 50 MG/ML SDV ONE (08:49)
[2020-05-16] MEDS ORDERED: Dexamethasone 4 MG/ML SDV ONE (08:55)
[2020-05-16] MEDS ORDERED: Ondansetron 4 MG/2 ML SDV ONE (08:55)
[2020-05-16] MEDS ORDERED: Metoprolol Tartrate 5 MG/5 ML SDV ONE (09:01)
--- NOTE | 2020-05-16 09:58 | PCM.POSTAN ---
POST ANESTHESIA ASSESSMENT - MENTAL STATUS Mental Status: Alert, Oriented - VITAL SIGNS Vital Signs: Last Vital Signs Temp 36.3 C 05/16/20 09:27 Pulse 77 05/16/20 09:35 Resp 19 05/16/20 09:35 BP 132/81 05/16/20 09:35 Pulse Ox 93 L 05/16/20 09:35 - RESPIRATORY Respiratory Status: Respiratory Rate WNL, Airway Patent, O2 Saturation Stable, Supplemental Oxygen - CARDIOVASCULAR CV Status: Pulse Rate WNL, Blood Pressure Stable - GASTROINTESTINAL GI Status: No Symptoms - PAIN Pain Score: 0 - POST OP HYDRATION Hydration Status: Adequate & Stable - OBSERVATIONS Free Text/Narrative:: Patient with irritated esophagus observing endoscope coming out. Thre was 100 mL suctioned from the airway with induction/paralytic for RSI. Didn't see anything go into airway under direct laryngoscopy or with Glidescope visualization and had continuous suction in oropharynx for additional secretions. Small masticated food particles were in airway and RSI was not straight forward due to airway anatomy with a Cormack and LeHane grade 4 score under direct laryngoscopy. Initial Glidescope look didn't permit ETT to pass vocal cords despite visualization of ETT passing through the vocal cords. Considered possibility of a degree of subglottic stenosis or possibly just needing a smaller ETT. Deepened with propofol and sevoflurane for a second look with GS #3 and was able to thread a styletted 7.5 ETT into the airway. Suctioned in-line prior to positive pressure ventilation and there was nothing that came up from the ETT, giving me a relatively high degree of confidence that there wasn't much, if any volume that got into his airway. Nevertheless, the patient is at an increased risk for pneumonitis after living with copious secretions all last night, needing a CPAP per regular use, and RSI intubating conditions. Spoke with Dr. Ghosh about increased vigilance for this patient and to encourage early and frequent ambulation over the next few days, that he should return to Dr. Winston or hospital with chest pain or shortness of breath in the next few days prior to his follow-up, if that occurs.
--- NOTE | 2020-05-16 10:12 | PCM48HPAN ---
Post Anesthesia Note - EVALUATION WITHIN 48HRS OF ANESTHETIC Vital Signs in Normal Range: Yes (Patient being trialed for SpO2 without O2 prior to discharge) Patient Participated in Evaluation: Yes Respiratory Function Stable: Yes Airway Patent: Yes Cardiovascular Function Stable: Yes Hydration Status Stable: Yes Pain Control Satisfactory: Yes Nausea and Vomiting Control Satisfactory: Yes Mental Status Recovered: Yes Vital Signs: Last Vital Signs Temp 36.8 C 05/16/20 09:42 Pulse 72 05/16/20 09:42 Resp 16 05/16/20 09:42 BP 127/100 H 05/16/20 09:42 Pulse Ox 91 L 05/16/20 09:42 - COMMENTS/OBSERVATIONS Free Text/Narrative:: VEHICLE MECHANIC to continue to observe patient for SpO2 stability and ability to hold down fluids prior to discharge. RN instructed to follow-up with me or call with any concerns.
--- NOTE | 2020-05-16 10:13 | PROC ---
DATE OF OPERATION: 05/16/2020 SURGEON: Robert Ghosh MD PREOPERATIVE DIAGNOSIS: Esophageal food impaction. POSTOPERATIVE DIAGNOSES: 1. Esophageal food impaction. 2. Distal esophageal stricture. 3. Antritis. 4. Esophagitis. OPERATION PERFORMED: 1. Esophagogastroduodenoscopy with food bolus disimpaction. 2. Esophageal pneumatic balloon dilation to 15 mm. ANESTHESIA: General anesthesia. BLOOD LOSS: Minimal. COMPLICATIONS: None. INDICATIONS AND CONSENT: The patient is an 80-year-old male who was eating some meat yesterday and had feeling of food getting stuck in his esophagus. After that point, the patient could not eat or drink anything without it coming back up. The patient presented to the hospital last night and medical management was tried, but the patient's symptoms did not resolve. Therefore, I was asked to evaluate the patient and I offered the patient endoscopic disimpaction. I discussed with the patient risks, benefits, and alternatives. Risks discussed specifically include bleeding and perforation. The patient agreed and informed consent was obtained. DETAILS OF THE PROCEDURE: The patient was taken to the procedure room, placed in supine position and then general anesthesia was induced. The patient was intubated. During induction of general anesthesia and intubation, there was copious amount of food residue that was refluxing back up into the mouth. This was quickly suctioned out with a suction device, but it is possible that the small amount of food might have gone into the lungs. There was no evidence of any of this happening. Then, the patient was intubated. Deep suction was performed. There was no food residue from the airway. Then, we proceeded with the procedure. At this point, the patient was turned into left lateral decubitus position. Scope was inserted. There was small amount food residue along the upper esophagus, down to the distal esophagus. In the distal esophagus, there was a food bolus that appeared to be stuck and this appeared to be consistent with a chunk of meat. Gentle pressure was applied to this food bolus and it was successfully pushed into the stomach. This area was examined and it appeared that there was a mild stenosis in the distal esophagus at the area of food impaction. We went down to the second portion of duodenum. Duodenum was normal. The antrum showed evidence of inflammation, marked by erythema. Biopsies were taken here for histologic exam. On retroflexion, again there was evidence of the food bolus that was pushed into the stomach. There was a small hiatal hernia, but no other abnormalities. Scope was taken back into the distal esophagus. There was evidence of mild stenosis once again in the distal esophagus just at and above the GE junction. Biopsies were taken at the GE junction and distal esophagus for pathologic exam and then a balloon dilator(12-13.5-15) was placed and we dilated the distal esophageal stricture to 15 mm under direct visualization of the scope. Once this was done, the stricture seemed to be patent at this time. The scope was passing through this area without any resistance. At this point, then we examined the upper and mid esophagus. There was quite a bit of acute inflammation in the mid esophagus. This area, around 30 cm from the incisors, was biopsied for pathologic exam. Then we went back into the stomach. Air was suctioned out and any fluid residuals were suctioned out from the esophagus and the scope was withdrawn. Then the patient was extubated and taken to the PACU for further recovery. The patient to be challenged with fluids. If the patient is asymptomatic and able to swallow fluids, he will be discharged home. The patient will be warned to return to the hospital with any chest pain or difficulty swallowing or pain with swallowing. The patient will also be warned about fevers. We will have the patient follow up with Ana Laura Carvajal in 1 to 2 weeks for pathologic discussion. He may need additional dilations in the future. ISABELLA /[id number] PASQUALE
[2020-05-16 11:16] VITALS: BP 144/76; PULSE 66
== END 2020-05-16 11:15 | disposition home or self-care (01) ==
LOC: JD.ED 21:13 → JD.SDS 05-16 06:16
PROVIDERS: ATTEND Surgery
DX: T18.128A Food in esophagus causing other injury, initial encounter (principal); K22.2 Esophageal obstruction; K20.90 Esophagitis, unspecified without bleeding; K44.9 Diaphragmatic hernia without obstruction or gangrene; G47.30 Sleep apnea, unspecified; J43.9 Emphysema, unspecified; E78.00 Pure hypercholesterolemia, unspecified; I10 Essential (primary) hypertension; I25.2 Old myocardial infarction; Z01.812 Encounter for preprocedural laboratory examination; Z20.828 Contact with and (suspected) exposure to other viral communicable diseases; Z79.899 Other long term (current) drug therapy; Z87.891 Personal history of nicotine dependence
CPT/HCPCS: 43239; 43247; 43249; 93005; 94640; 96374; 96375; 99284; J0330; J1100; J1610; J2001; J2405; J2704; J2765; J3010; J3490; J7120; U0002; 00731; 88305; 88342; 93010; J7620-GY

== ENCOUNTER 2023-05-02 14:37 | Emergency (ER) | payer MEDICARE, BC ==
[2023-05-02] MEDS ORDERED: Amoxicillin/Clavulanate K 875-125 MG Tab PO ONE (15:32)
[2023-05-02 22:18] VITALS: BP 122/71; PULSE 62
== END 2023-05-02 16:15 | disposition home or self-care (01) ==
LOC: JD.ED 14:37
DX: J32.9 Chronic sinusitis, unspecified (principal); I10 Essential (primary) hypertension; I25.2 Old myocardial infarction; J44.9 Chronic obstructive pulmonary disease, unspecified; K21.9 Gastro-esophageal reflux disease without esophagitis; Z79.899 Other long term (current) drug therapy
CPT/HCPCS: 93005; 99283; A9270; 99282

== ENCOUNTER 2023-05-31 11:47 | Inpatient (IN) | payer MEDICARE, BC ==
[~2023-05-31 11:47] MED LIST: Enoxaparin 40 MG/0.4 ML Syringe SUBCUT SCH
[2023-05-31] MEDS ORDERED: Sodium Chloride 0.9% 10 ML Syringe FLUSH PRN (12:08)
[2023-05-31 12:52] LABS: BASOPHILS PERCENT AUTO 0.5 % (0.0-1.0); EOSINOPHILS PERCENT AUTO 0.2 % (0.0-6.0); HEMATOCRIT 37.4 % (42.0-52.0); HEMOGLOBIN 12.5 gm/dl (14.0-18.0); LYMPHOCYTES ABSOLUTE AUTO 0.6 K/mm3 (1.0-4.8); MEAN CORPUSCULAR HEMOGLOBIN 30.1 pg (28.0-32.0); MEAN CORPUSCULAR HGB CONC 33.4 g/dl (32.0-36.0); MEAN CORPUSCULAR VOLUME 90.1 fl (83.0-99.0); MEAN PLATELET VOLUME 10.4 fl (9.4-12.4); MONOCYTES ABSOLUTE AUTO 1.3 K/mm3 (0.0-0.8); NEUTROPHILS ABSOLUTE AUTO 2.5 K/mm3 (1.8-7.7); NEUTROPHILS PERCENT AUTO 56.3 % (41.0-71.0); PLATELET COUNT,PLT 213 K/mm3 (150-400); RED BLOOD CELL COUNT 4.15 M/mm3 (4.52-5.90); WHITE BLOOD CELL COUNT,WBC 4.42 K/mm3 (3.9-11.3)
[2023-05-31 13:12] LABS: A/G RATIO 0.8 (1-2); ALBUMIN 3.1 g/dl (3.4-5.0); ANION GAP 15.8 (5-15); BILIRUBIN TOTAL 0.4 mg/dL (0.2-1.0); BUN/CREATININE RATIO 12.5 (14-18); CALCIUM 8.4 mg/dL (8.5-10.1); CREATININE 1.2 mg/dL (0.7-1.3); EST CRCL DRUG DOSING (CG) 48.81 mL/min; POTASSIUM,K 3.8 mEq/L (3.5-5.1); PROTEIN TOTAL,TP 6.8 g/dl (6.4-8.2)
[2023-05-31 13:20] LABS: SLIDE REVIEW ABNORMAL SMEAR
[2023-05-31] MEDS ORDERED: Sodium Chloride 0.9% 10 ML Syringe FLUSH ONE (13:26)
[2023-05-31] MEDS ORDERED: Iopamidol 755 Mg/ML 100 ML Bottle IVPUSH ONE (13:26)
[2023-05-31] MEDS ORDERED: Albuterol/Ipratropium 3.0-0.5 MG/3 ML Neb Soln NEB ONE (13:27)
[2023-05-31] MEDS ORDERED: Sodium Chloride 0.9% 100 ML IV SCH (13:30)
[2023-05-31] MEDS ORDERED: Acetaminophen 325 MG Tab PO PRN (15:39)
[2023-05-31] MEDS ORDERED: Ondansetron 4 MG/2 ML SDV IV PRN (15:39)
[2023-05-31] MEDS ORDERED: Albuterol 0.083% 2.5 MG/3 ML Neb Soln NEB PRN (15:39)
[2023-05-31] MEDS ORDERED: Docusate Sodium 100 MG Cap PO PRN (15:39)
[2023-05-31] MEDS ORDERED: guaiFENesin/Dextromethorphan 100-10 MG/5 ML Soln 5 ML Cup PO ONE (16:00)
[2023-05-31] MEDS: Albuterol/Ipratropium 3.0-0.5 MG/3 ML Neb Soln NEB SCH ×2 (16:04→20:46)
[2023-05-31] MEDS: Dexamethasone 6 MG TABLET PO SCH (16:28)
[2023-05-31] MEDS: Enoxaparin 40 MG/0.4 ML Syringe SUBCUT SCH (16:29)
[2023-05-31 17:24] LABS: APPEARANCE,URINE CLEAR (Clear); BILIRUBIN,URINE NEGATIVE (Negative); COLOR,URINE YELLOW (Yellow); GLUCOSE,URINE NEGATIVE (Negative); KETONES,URINE NEGATIVE (Negative); LEUKOCYTE ESTERASE,URINE NEGATIVE (Negative); NITRITE,URINE NEGATIVE (Negative); OCCULT BLOOD,URINE NEGATIVE (Negative); PROTEIN,URINE NEGATIVE (Negative); UROBILINOGEN,URINE 0.2 (0.2-1.0)
[2023-05-31] MEDS: guaiFENesin/Dextromethorphan 100-10 MG/5 ML Soln 5 ML Cup PO SCH (20:28)
[2023-05-31] MEDS: Gabapentin 100 MG Cap PO SCH (20:29)
[2023-05-31] MEDS: Acetaminophen 325 MG Tab PO SCH (20:29)
[2023-05-31] MEDS: NIRMATRELVIR PO SCH (20:36)
[2023-05-31] MEDS: RITONAVIR PO SCH (20:36)
[2023-05-31] MEDS ORDERED: RITONAVIR PO SCH (21:00)
[2023-05-31] MEDS ORDERED: NIRMATRELVIR PO SCH (21:00)
[2023-06-01 05:23] LABS: BASOPHILS PERCENT AUTO 0.3 % (0.0-1.0); HEMATOCRIT 36.1 % (42.0-52.0); HEMOGLOBIN 12.4 gm/dl (14.0-18.0); IMMATURE GRAN ABSOLUTE AUTO 0.02 K/mm3 (0.00-0.05); IMMATURE GRAN PERCENT AUTO 0.6 % (0.0-0.4); LYMPHOCYTES ABSOLUTE AUTO 0.6 K/mm3 (1.0-4.8); LYMPHOCYTES PERCENT AUTO 16.9 % (24.0-44.0); MEAN CORPUSCULAR HEMOGLOBIN 30.2 pg (28.0-32.0); MEAN CORPUSCULAR HGB CONC 34.3 g/dl (32.0-36.0); MEAN CORPUSCULAR VOLUME 87.8 fl (83.0-99.0); MEAN PLATELET VOLUME 10.8 fl (9.4-12.4); MONOCYTES ABSOLUTE AUTO 0.2 K/mm3 (0.0-0.8); MONOCYTES PERCENT AUTO 4.6 % (0.0-8.0); NEUTROPHILS ABSOLUTE AUTO 2.7 K/mm3 (1.8-7.7); NEUTROPHILS PERCENT AUTO 77.6 % (41.0-71.0); PLATELET COUNT,PLT 206 K/mm3 (150-400); RED BLOOD CELL COUNT 4.11 M/mm3 (4.52-5.90); WHITE BLOOD CELL COUNT,WBC 3.49 K/mm3 (3.9-11.3)
[2023-06-01 05:24] LABS: A/G RATIO 0.8 (1-2); ALBUMIN 2.8 g/dl (3.4-5.0); ANION GAP 18.1 (5-15); BILIRUBIN TOTAL 0.3 mg/dL (0.2-1.0); BUN/CREATININE RATIO 17.7 (14-18); C-REACTIVE PROTEIN 0.9 mg/dL (<1.0); CALCIUM 8.4 mg/dL (8.5-10.1); CREATININE 1.3 mg/dL (0.7-1.3); EST CRCL DRUG DOSING (CG) 45.05 mL/min; MAGNESIUM 2.1 mg/dL (1.8-2.4); POTASSIUM,K 4.1 mEq/L (3.5-5.1); PROTEIN TOTAL,TP 6.4 g/dl (6.4-8.2)
[2023-06-01] MEDS: Albuterol/Ipratropium 3.0-0.5 MG/3 ML Neb Soln NEB SCH ×4 (06:12→20:49)
[2023-06-01] MEDS: guaiFENesin/Dextromethorphan 100-10 MG/5 ML Soln 5 ML Cup PO SCH ×3 (06:18→20:23)
[2023-06-01] MEDS: Metoprolol Succinate 50 MG Tab.ER PO SCH (08:22)
[2023-06-01] MEDS: Gabapentin 100 MG Cap PO SCH ×3 (08:23→20:20)
[2023-06-01] MEDS: Aspirin 81 MG Tab.EC PO SCH (08:23)
[2023-06-01] MEDS: Furosemide 20 MG Tab PO SCH (08:24)
[2023-06-01] MEDS: Doxazosin 4 MG Tab PO SCH (08:24)
[2023-06-01] MEDS: Pantoprazole 40 MG Tab.CR PO SCH (08:24)
[2023-06-01] MEDS: NIRMATRELVIR PO SCH ×2 (08:25→20:22)
[2023-06-01] MEDS: Dexamethasone 6 MG TABLET PO SCH (08:25)
[2023-06-01] MEDS: Enoxaparin 40 MG/0.4 ML Syringe SUBCUT SCH (08:25)
[2023-06-01] MEDS: RITONAVIR PO SCH ×2 (08:25→20:22)
[2023-06-01] MEDS ORDERED: Non-Formulary Medication 1 Each (Omeprazole 20 MG Capsule.Dr) PO SCH (09:00)
[2023-06-01] MEDS ORDERED: NIFEdipine 30 MG Tab.ER PO SCH (09:00)
[2023-06-01] MEDS: Trolamine Salicylate/Aloe Vera 10% Crm 85 GM Tube TOP PRN ×2 (15:14→20:24)
[2023-06-01] MEDS: Acetaminophen 325 MG Tab PO SCH (20:19)
[2023-06-02 05:28] LABS: IMMATURE GRAN ABSOLUTE AUTO 0.03 K/mm3 (0.00-0.05); IMMATURE GRAN PERCENT AUTO 0.3 % (0.0-0.4); LYMPHOCYTES ABSOLUTE AUTO 0.9 K/mm3 (1.0-4.8); LYMPHOCYTES PERCENT AUTO 8.7 % (24.0-44.0); MEAN CORPUSCULAR HEMOGLOBIN 29.7 pg (28.0-32.0); MEAN CORPUSCULAR HGB CONC 34.2 g/dl (32.0-36.0); MEAN PLATELET VOLUME 10.6 fl (9.4-12.4); MONOCYTES ABSOLUTE AUTO 0.8 K/mm3 (0.0-0.8); MONOCYTES PERCENT AUTO 7.7 % (0.0-8.0); NEUTROPHILS ABSOLUTE AUTO 8.4 K/mm3 (1.8-7.7); NEUTROPHILS PERCENT AUTO 83.3 % (41.0-71.0); PLATELET COUNT,PLT 233 K/mm3 (150-400); RED BLOOD CELL COUNT 4.37 M/mm3 (4.52-5.90); WHITE BLOOD CELL COUNT,WBC 10.03 K/mm3 (3.9-11.3)
[2023-06-02 05:52] LABS: A/G RATIO 0.9 (1-2); ALBUMIN 3.1 g/dl (3.4-5.0); ANION GAP 19.5 (5-15); BILIRUBIN TOTAL 0.3 mg/dL (0.2-1.0); BUN/CREATININE RATIO 22.3 (14-18); C-REACTIVE PROTEIN 0.3 mg/dL (<1.0); CALCIUM 8.7 mg/dL (8.5-10.1); CREATININE 1.3 mg/dL (0.7-1.3); EST CRCL DRUG DOSING (CG) 45.05 mL/min; MAGNESIUM 2.2 mg/dL (1.8-2.4); POTASSIUM,K 4.5 mEq/L (3.5-5.1); PROTEIN TOTAL,TP 6.7 g/dl (6.4-8.2)
[2023-06-02] MEDS: Albuterol/Ipratropium 3.0-0.5 MG/3 ML Neb Soln NEB SCH ×2 (05:52→09:21)
[2023-06-02] MEDS: guaiFENesin/Dextromethorphan 100-10 MG/5 ML Soln 5 ML Cup PO SCH (07:12)
[2023-06-02] MEDS: Dexamethasone 6 MG TABLET PO SCH (08:26)
[2023-06-02] MEDS: Pantoprazole 40 MG Tab.CR PO SCH (08:26)
[2023-06-02] MEDS: Metoprolol Succinate 50 MG Tab.ER PO SCH (08:26)
[2023-06-02] MEDS: Gabapentin 100 MG Cap PO SCH (08:27)
[2023-06-02] MEDS: Aspirin 81 MG Tab.EC PO SCH (08:27)
[2023-06-02] MEDS: Doxazosin 4 MG Tab PO SCH (08:27)
[2023-06-02] MEDS: Furosemide 20 MG Tab PO SCH (08:27)
[2023-06-02] MEDS: RITONAVIR PO SCH (08:28)
[2023-06-02] MEDS: Enoxaparin 40 MG/0.4 ML Syringe SUBCUT SCH (08:28)
[2023-06-02] MEDS: NIRMATRELVIR PO SCH (08:28)
[2023-06-02] MEDS: Trolamine Salicylate/Aloe Vera 10% Crm 85 GM Tube TOP PRN (08:34)
[2023-06-02] MEDS ORDERED: NIFEdipine 30 MG Tab.ER PO SCH (09:00)
[2023-06-02 10:57] VITALS: BP 119/84; PULSE 66
[2023-06-07] MEDS ORDERED: NIFEdipine 30 MG Tab.ER PO SCH (09:00)
== END 2023-06-02 10:38 | disposition home or self-care (01) | DRG 177 ==
LOC: JD.ED 11:47 → JD.MS 14:39
PROVIDERS: ADMIT Internal Medicine; ATTEND Internal Medicine
PROC: 3E0333Z Introduction of Anti-inflammatory into Peripheral Vein, Percutaneous Approach (ICD-10-PCS; principal; 2023-05-31)
DX: U07.1 COVID-19 (principal); J12.82 Pneumonia due to coronavirus disease 2019; J96.01 Acute respiratory failure with hypoxia; I44.0 Atrioventricular block, first degree; E78.5 Hyperlipidemia, unspecified; G47.30 Sleep apnea, unspecified; R09.02 Hypoxemia; J43.9 Emphysema, unspecified; R91.1 Solitary pulmonary nodule; G47.33 Obstructive sleep apnea (adult) (pediatric); J44.9 Chronic obstructive pulmonary disease, unspecified; I10 Essential (primary) hypertension; H91.90 Unspecified hearing loss, unspecified ear; E78.00 Pure hypercholesterolemia, unspecified; Z87.11 Personal history of peptic ulcer disease; G62.9 Polyneuropathy, unspecified; M10.9 Gout, unspecified; Z85.828 Personal history of other malignant neoplasm of skin; Z98.890 Other specified postprocedural states; K21.9 Gastro-esophageal reflux disease without esophagitis; Z79.82 Long term (current) use of aspirin; Z79.899 Other long term (current) drug therapy
CPT/HCPCS: 36415; 71045; 71275; 80053; 84484; 85025; 85379; 93005; 94640; 99285; J3490 ×3; Q9967; 81003; 83735; 86140; 93010; 94667; 94668; 94761; 97161-GP; 99284; A9270-GY; J1650; J7620-GY; J8540

== ENCOUNTER 2023-07-09 05:01 | Inpatient (IN) | payer MEDICARE, BC ==
[2023-07-09] MEDS ORDERED: Sodium Chloride 0.9% 10 ML Syringe FLUSH PRN (05:41)
[2023-07-09] MEDS ORDERED: Albuterol/Ipratropium 3.0-0.5 MG/3 ML Neb Soln NEB ONE (05:43)
[2023-07-09 06:08] LABS: BASOPHILS ABSOLUTE AUTO 0.1 K/mm3 (0.0-0.2); BASOPHILS PERCENT AUTO 0.9 % (0.0-1.0); EOSINOPHILS ABSOLUTE AUTO 0.2 K/mm3 (0.0-0.4); EOSINOPHILS PERCENT AUTO 1.5 % (0.0-6.0); HEMATOCRIT 35.3 % (42.0-52.0); HEMOGLOBIN 11.3 gm/dl (14.0-18.0); IMMATURE GRAN ABSOLUTE AUTO 0.18 K/mm3 (0.00-0.05); IMMATURE GRAN PERCENT AUTO 1.8 % (0.0-0.4); MEAN CORPUSCULAR VOLUME 90.5 fl (83.0-99.0); MEAN PLATELET VOLUME 9.7 fl (9.4-12.4); MONOCYTES ABSOLUTE AUTO 1.4 K/mm3 (0.0-0.8); MONOCYTES PERCENT AUTO 13.5 % (0.0-8.0); NEUTROPHILS ABSOLUTE AUTO 6.5 K/mm3 (1.8-7.7); NEUTROPHILS PERCENT AUTO 63.3 % (41.0-71.0); PLATELET COUNT,PLT 355 K/mm3 (150-400); WHITE BLOOD CELL COUNT,WBC 10.26 K/mm3 (3.9-11.3)
[2023-07-09 06:28] LABS: A/G RATIO 0.5 (1-2); ALBUMIN 2.3 g/dl (3.4-5.0); ANION GAP 15.3 (5-15); BILIRUBIN TOTAL 0.4 mg/dL (0.2-1.0); BUN/CREATININE RATIO 11.8 (14-18); C-REACTIVE PROTEIN 4.8 mg/dL (<1.0); CALCIUM 8.3 mg/dL (8.5-10.1); CREATININE 1.1 mg/dL (0.7-1.3); EST CRCL DRUG DOSING (CG) 53.24 mL/min; POTASSIUM,K 4.3 mEq/L (3.5-5.1)
[2023-07-09 06:44] LABS: CORONAVIRUS COVID-19 NAA NEGATIVE (NEGATIVE); INFLUENZA A NAA NEGATIVE (NEGATIVE); RESPIRATORY SYNCYTIAL VIR NAA NEGATIVE (NEGATIVE)
[2023-07-09] MEDS ORDERED: cefTRIAXone 2 GM in Sodium Chloride 0.9% 100 ML IV ONE (07:20)
[2023-07-09] MEDS ORDERED: Dextrose 5%-0.9% NaCl 1,000 ML IV SCH (08:00)
[2023-07-09] MEDS ORDERED: Iopamidol 612 MG/ML 100 ML Bottle IVPUSH ONE (08:06)
[2023-07-09] MEDS ORDERED: Iopamidol 755 Mg/ML 100 ML Bottle IVPUSH ONE (08:07)
[2023-07-09] MEDS: Albuterol/Ipratropium 3.0-0.5 MG/3 ML Neb Soln NEB PRN (08:21)
[2023-07-09] MEDS ORDERED: Furosemide 40 MG/4 ML VIAL IVPUSH ONE (09:19)
[2023-07-09 11:11] LABS: APPEARANCE,URINE CLEAR (Clear); BILIRUBIN,URINE NEGATIVE (Negative); COLOR,URINE YELLOW (Yellow); GLUCOSE,URINE NEGATIVE (Negative); KETONES,URINE NEGATIVE (Negative); LEUKOCYTE ESTERASE,URINE NEGATIVE (Negative); NITRITE,URINE NEGATIVE (Negative); OCCULT BLOOD,URINE NEGATIVE (Negative); PH,URINE 6.5 (5.0-8.0); PROTEIN,URINE NEGATIVE (Negative); UROBILINOGEN,URINE 0.2 (0.2-1.0)
[2023-07-09 11:16] LABS: BACTERIA,URINE FEW /hpf (FEW); EPITHELIAL CELLS,URINE 0-5 /hpf (0-5); MUCUS,URINE FEW /hpf (FEW); RBC,URINE 0-5 /hpf (0-5); WBC,URINE 0-5 /hpf (0-5)
[2023-07-09] MEDS ORDERED: oxyCODONE 5 MG Tab PO PRN (12:35)
[2023-07-09] MEDS ORDERED: Acetaminophen 325 MG Tab PO PRN (12:35)
[2023-07-09] MEDS ORDERED: Docusate Sodium 100 MG Cap PO PRN (12:35)
[2023-07-09] MEDS: Gabapentin 300 MG Cap PO SCH (14:27)
[2023-07-09] MEDS: Gabapentin 600 MG Tab PO SCH (20:36)
[2023-07-10] MEDS: Gabapentin 300 MG Cap PO SCH ×2 (06:15→11:51)
[2023-07-10 06:23] LABS: BASOPHILS ABSOLUTE AUTO 0.1 K/mm3 (0.0-0.2); BASOPHILS PERCENT AUTO 0.9 % (0.0-1.0); EOSINOPHILS ABSOLUTE AUTO 0.1 K/mm3 (0.0-0.4); EOSINOPHILS PERCENT AUTO 1.3 % (0.0-6.0); HEMATOCRIT 33.1 % (42.0-52.0); HEMOGLOBIN 10.7 gm/dl (14.0-18.0); IMMATURE GRAN ABSOLUTE AUTO 0.17 K/mm3 (0.00-0.05); IMMATURE GRAN PERCENT AUTO 1.7 % (0.0-0.4); LYMPHOCYTES ABSOLUTE AUTO 1.7 K/mm3 (1.0-4.8); LYMPHOCYTES PERCENT AUTO 16.9 % (24.0-44.0); MEAN CORPUSCULAR HEMOGLOBIN 28.3 pg (28.0-32.0); MEAN CORPUSCULAR HGB CONC 32.3 g/dl (32.0-36.0); MEAN CORPUSCULAR VOLUME 87.6 fl (83.0-99.0); MONOCYTES ABSOLUTE AUTO 1.4 K/mm3 (0.0-0.8); MONOCYTES PERCENT AUTO 13.7 % (0.0-8.0); NEUTROPHILS ABSOLUTE AUTO 6.4 K/mm3 (1.8-7.7); NEUTROPHILS PERCENT AUTO 65.5 % (41.0-71.0); PLATELET COUNT,PLT 351 K/mm3 (150-400); RED BLOOD CELL COUNT 3.78 M/mm3 (4.52-5.90); WHITE BLOOD CELL COUNT,WBC 9.83 K/mm3 (3.9-11.3)
[2023-07-10] MEDS: Albuterol/Ipratropium 3.0-0.5 MG/3 ML Neb Soln NEB PRN ×2 (06:33→20:28)
[2023-07-10 06:51] LABS: A/G RATIO 0.5 (1-2); ALBUMIN 2.1 g/dl (3.4-5.0); BILIRUBIN TOTAL 0.3 mg/dL (0.2-1.0); CALCIUM 8.3 mg/dL (8.5-10.1); EST CRCL DRUG DOSING (CG) 58.57 mL/min; PROTEIN TOTAL,TP 6.2 g/dl (6.4-8.2)
[2023-07-10] MEDS ORDERED: Enoxaparin 40 MG/0.4 ML Syringe SUBCUT SCH (09:00)
[2023-07-10] MEDS ORDERED: Furosemide 20 MG Tab PO SCH (09:00)
[2023-07-10] MEDS ORDERED: Furosemide 40 MG/4 ML VIAL IVPUSH SCH (09:00)
[2023-07-10] MEDS ORDERED: Furosemide 40 MG/4 ML VIAL IVPUSH ONE (09:03)
[2023-07-10] MEDS ORDERED: oxyCODONE 5 MG Tab PO PRN (09:05)
[2023-07-10] MEDS: cefTRIAXone 2 GM in Sodium Chloride 0.9% 100 ML IV SCH (09:22)
[2023-07-10] MEDS: Metoprolol Succinate 25 MG Tab.ER PO SCH (09:23)
[2023-07-10] MEDS: Pantoprazole 40 MG Tab.CR PO SCH (09:23)
[2023-07-10] MEDS: Doxazosin 4 MG Tab PO SCH (09:23)
[2023-07-10] MEDS ORDERED: ALOE VERA TOP PRN (12:02)
[2023-07-10] MEDS ORDERED: TROLAMINE SALICYLATE TOP PRN (12:02)
[2023-07-10] MEDS: Gabapentin 600 MG Tab PO SCH (20:15)
[2023-07-10] MEDS ORDERED: [UNRECOGNIZED DRUG - OTHER] TOP PRN (21:00)
[2023-07-10] MEDS ORDERED: [UNRECOGNIZED DRUG - MIXTURE] TOP SCH (21:00)
[2023-07-11 05:28] LABS: CALCIUM 8.4 mg/dL (8.5-10.1); EST CRCL DRUG DOSING (CG) 58.57 mL/min
[2023-07-11] MEDS: Gabapentin 300 MG Cap PO SCH (06:45)
[2023-07-11] MEDS: Albuterol/Ipratropium 3.0-0.5 MG/3 ML Neb Soln NEB PRN (06:51)
[2023-07-11] MEDS: Doxazosin 4 MG Tab PO SCH (08:00)
[2023-07-11] MEDS: Metoprolol Succinate 25 MG Tab.ER PO SCH (08:00)
[2023-07-11] MEDS: cefTRIAXone 2 GM in Sodium Chloride 0.9% 100 ML IV SCH (08:00)
[2023-07-11] MEDS: Pantoprazole 40 MG Tab.CR PO SCH (08:01)
[2023-07-11 08:02] VITALS: BP 140/67; PULSE 81
[2023-07-11] MEDS ORDERED: Furosemide 40 MG Tab PO SCH (09:00)
== END 2023-07-11 09:55 | disposition home or self-care (01) | DRG 193 ==
LOC: JD.ED 05:01 → JD.MS 10:19
PROVIDERS: ADMIT Emergency Medicine; ATTEND Internal Medicine
DX: J18.9 Pneumonia, unspecified organism (principal); I31.39 Other pericardial effusion (noninflammatory); I50.43 Acute on chronic combined systolic (congestive) and diastolic (congestive) heart failure; I50.41 Acute combined systolic (congestive) and diastolic (congestive) heart failure; R09.02 Hypoxemia; J96.01 Acute respiratory failure with hypoxia; J44.9 Chronic obstructive pulmonary disease, unspecified; J90 Pleural effusion, not elsewhere classified; J44.1 Chronic obstructive pulmonary disease with (acute) exacerbation; Z79.899 Other long term (current) drug therapy; Z20.822 Contact with and (suspected) exposure to COVID-19; I11.0 Hypertensive heart disease with heart failure; E78.00 Pure hypercholesterolemia, unspecified; M79.674 Pain in right toe(s); G62.9 Polyneuropathy, unspecified; K21.9 Gastro-esophageal reflux disease without esophagitis; G47.33 Obstructive sleep apnea (adult) (pediatric); Z87.891 Personal history of nicotine dependence; Z86.16 Personal history of COVID-19; Z11.52 Encounter for screening for COVID-19
CPT/HCPCS: 0241U; 36415; 71045; 71046; 71275; 80048; 80053; 81001; 83605; 83735; 83880; 84484; 85025; 85379; 86140; 87040; 93307; 94640; 94760; 94761; 96374; 97161; 99285; 99223; A9270-GY; J0696; J1940; J3490; J7042; J7620-GY; Q9967

== ENCOUNTER 2023-09-16 20:40 | Inpatient (IN) | payer BC, MEDICARE ==
[2023-09-16 21:13] LABS: BASOPHILS ABSOLUTE AUTO 0.1 K/mm3 (0.0-0.2); BASOPHILS PERCENT AUTO 0.7 % (0.0-1.0); EOSINOPHILS ABSOLUTE AUTO 0.3 K/mm3 (0.0-0.4); HEMATOCRIT 40.6 % (42.0-52.0); IMMATURE GRAN ABSOLUTE AUTO 0.03 K/mm3 (0.00-0.05); IMMATURE GRAN PERCENT AUTO 0.3 % (0.0-0.4); LYMPHOCYTES ABSOLUTE AUTO 1.8 K/mm3 (1.0-4.8); LYMPHOCYTES PERCENT AUTO 19.1 % (24.0-44.0); MEAN CORPUSCULAR VOLUME 90.6 fl (83.0-99.0); MEAN PLATELET VOLUME 10.5 fl (9.4-12.4); MONOCYTES PERCENT AUTO 10.5 % (0.0-8.0); NEUTROPHILS ABSOLUTE AUTO 6.1 K/mm3 (1.8-7.7); NEUTROPHILS PERCENT AUTO 66.4 % (41.0-71.0); PLATELET COUNT,PLT 166 K/mm3 (150-400); RED BLOOD CELL COUNT 4.48 M/mm3 (4.52-5.90); WHITE BLOOD CELL COUNT,WBC 9.21 K/mm3 (3.9-11.3)
[2023-09-16] MEDS: Albuterol/Ipratropium 3.0-0.5 MG/3 ML Neb Soln NEB ONE (21:15)
[2023-09-16] MEDS: methylPREDNISolone Sodium Succinate 125 MG/2 ML SDV IVPUSH ONE (21:18)
[2023-09-16 21:28] LABS: INR 0.97; PROTHROMBIN TIME 10.4 SECONDS (9.7-12.0)
[2023-09-16 21:29] LABS: PTT,PARTIAL THROMBOPLSTIN TIME 25.7 SECONDS (21.7-31.4)
[2023-09-16 21:35] LABS: LACTIC ACID 1.9 mmol/L (0.4-2.0)
[2023-09-16 21:36] LABS: A/G RATIO 0.9 (1-2); ALBUMIN 3.4 g/dl (3.4-5.0); ANION GAP 16.3 (5-15); BILIRUBIN TOTAL 0.5 mg/dL (0.2-1.0); BUN/CREATININE RATIO 19.1 (14-18); CALCIUM 8.6 mg/dL (8.5-10.1); CREATININE 1.1 mg/dL (0.7-1.3); EST CRCL DRUG DOSING (CG) 53.24 mL/min; MAGNESIUM 1.9 mg/dL (1.8-2.4); POTASSIUM,K 4.3 mEq/L (3.5-5.1); PROTEIN TOTAL,TP 7.1 g/dl (6.4-8.2)
[2023-09-16] MEDS: cefTRIAXone 1 GM in Sodium Chloride 0.9% 100 ML IV ONE (21:45)
[2023-09-16 22:34] LABS: BASE EXCESS ARTERIAL -4.3 (-2-2.0); BICARBONATE,ARTERIAL 19.2 meq/L (22.0-26.0); O2 SATURATION ARTERIAL 86.9 % (96.0-97.0); PCO2 ARTERIAL 32.4 mmHg (35.0-45.0)
[2023-09-16] MEDS: Doxycycline 100 MG in Sodium Chloride 0.9% 100 ML IV ONE (22:41)
[2023-09-16 23:35] LABS: CORONAVIRUS COVID-19 NAA NEGATIVE (NEGATIVE); INFLUENZA A NAA NEGATIVE (NEGATIVE); RESPIRATORY SYNCYTIAL VIR NAA NEGATIVE (NEGATIVE)
[2023-09-17] MEDS ORDERED: Polyethylene Glycol 3350 Powder 17 GM Packet PO PRN (00:14)
[2023-09-17] MEDS ORDERED: Acetaminophen 325 MG Tab PO PRN (00:14)
[2023-09-17 01:44] LABS: APPEARANCE,URINE CLEAR (Clear); BILIRUBIN,URINE NEGATIVE (Negative); COLOR,URINE YELLOW (Yellow); GLUCOSE,URINE NEGATIVE (Negative); KETONES,URINE NEGATIVE (Negative); LEUKOCYTE ESTERASE,URINE NEGATIVE (Negative); NITRITE,URINE NEGATIVE (Negative); OCCULT BLOOD,URINE NEGATIVE (Negative); PH,URINE 6.5 (5.0-8.0); PROTEIN,URINE NEGATIVE (Negative)
[2023-09-17] MEDS: Albuterol/Ipratropium 3.0-0.5 MG/3 ML Neb Soln NEB SCH (02:09)
[2023-09-17] MEDS: Gabapentin 300 MG Cap PO SCH (06:14)
[2023-09-17] MEDS: predniSONE 20 MG Tab PO SCH (06:14)
[2023-09-17 09:13] LABS: HEMOGLOBIN A1C 6.2 %
[2023-09-17 09:19] LABS: CHOLESTEROL HDL 69 mg/dL (40-59); CHOLESTEROL LDL DIRECT 60 mg/dL (<100); CHOLESTEROL TOTAL 142 mg/dL (<200); TRIGLYCERIDES 24 mg/dL (<150)
[2023-09-17] MEDS: Rosuvastatin 10 MG Tab PO SCH (09:28)
[2023-09-17] MEDS: Spironolactone 25 MG Tab PO SCH (09:28)
[2023-09-17] MEDS: Pantoprazole 40 MG Tab.CR PO SCH (09:29)
[2023-09-17] MEDS: Doxazosin 2 MG Tab PO SCH (09:29)
[2023-09-17] MEDS: Metoprolol Succinate 25 MG Tab.ER PO SCH (09:30)
[2023-09-17] MEDS: Enoxaparin 40 MG/0.4 ML Syringe SUBCUT SCH (09:30)
[2023-09-17] MEDS: Aspirin 81 MG Tab.EC PO SCH (09:30)
[2023-09-17] MEDS: Bisacodyl 5 MG Tab PO SCH (09:30)
[2023-09-17] MEDS: cefTRIAXone 2 GM in Sodium Chloride 0.9% 100 ML IV SCH (09:31)
[2023-09-17] MEDS: Doxycycline 100 MG in Sodium Chloride 0.9% 100 ML IV SCH (10:20)
[2023-09-17] MEDS: Doxycycline 100 MG Vial ONE (10:39)
[2023-09-17] MEDS: Gabapentin 600 MG Tab PO SCH (21:00)
[2023-09-18 05:36] LABS: BASOPHILS PERCENT AUTO 0.1 % (0.0-1.0); EOSINOPHILS PERCENT AUTO 0.1 % (0.0-6.0); HEMATOCRIT 34.8 % (42.0-52.0); IMMATURE GRAN ABSOLUTE AUTO 0.05 K/mm3 (0.00-0.05); IMMATURE GRAN PERCENT AUTO 0.4 % (0.0-0.4); LYMPHOCYTES ABSOLUTE AUTO 1.2 K/mm3 (1.0-4.8); MEAN CORPUSCULAR HEMOGLOBIN 28.8 pg (28.0-32.0); MEAN CORPUSCULAR HGB CONC 32.8 g/dl (32.0-36.0); MEAN CORPUSCULAR VOLUME 87.9 fl (83.0-99.0); MEAN PLATELET VOLUME 10.7 fl (9.4-12.4); MONOCYTES ABSOLUTE AUTO 1.2 K/mm3 (0.0-0.8); MONOCYTES PERCENT AUTO 10.3 % (0.0-8.0); NEUTROPHILS ABSOLUTE AUTO 9.2 K/mm3 (1.8-7.7); NEUTROPHILS PERCENT AUTO 79.1 % (41.0-71.0); PLATELET COUNT,PLT 164 K/mm3 (150-400); RED BLOOD CELL COUNT 3.96 M/mm3 (4.52-5.90); WHITE BLOOD CELL COUNT,WBC 11.61 K/mm3 (3.9-11.3)
[2023-09-18 06:04] LABS: HEMOGLOBIN 11.4 gm/dl (14.0-18.0)
[2023-09-18 06:09] LABS: ANION GAP 16.2 (5-15); BUN/CREATININE RATIO 23.3 (14-18); CALCIUM 8.8 mg/dL (8.5-10.1); CREATININE 1.2 mg/dL (0.7-1.3); EST CRCL DRUG DOSING (CG) 48.81 mL/min; POTASSIUM,K 4.2 mEq/L (3.5-5.1)
[2023-09-18 13:38] VITALS: BP 154/87; PULSE 89
== END 2023-09-18 14:55 | disposition home or self-care (01) | DRG 196 ==
LOC: JD.ED 20:40 → JD.MS 22:22
PROVIDERS: ADMIT Student in an Organized Health Care Education/Training Program; ATTEND Internal Medicine
PROC: 4A033R1 Measurement of Arterial Saturation, Peripheral, Percutaneous Approach (ICD-10-PCS; principal; 2023-09-16)
DX: J84.9 Interstitial pulmonary disease, unspecified (principal); J96.01 Acute respiratory failure with hypoxia; J44.1 Chronic obstructive pulmonary disease with (acute) exacerbation; R65.10 Systemic inflammatory response syndrome (SIRS) of non-infectious origin without acute organ dysfunction; I10 Essential (primary) hypertension; H91.90 Unspecified hearing loss, unspecified ear; J90 Pleural effusion, not elsewhere classified; K21.9 Gastro-esophageal reflux disease without esophagitis; M10.9 Gout, unspecified; M54.9 Dorsalgia, unspecified; G89.29 Other chronic pain; G62.9 Polyneuropathy, unspecified; G47.33 Obstructive sleep apnea (adult) (pediatric); R79.89 Other specified abnormal findings of blood chemistry; Z85.828 Personal history of other malignant neoplasm of skin; Z85.79 Personal history of other malignant neoplasms of lymphoid, hematopoietic and related tissues; Z11.52 Encounter for screening for COVID-19; R06.03 Acute respiratory distress; I11.0 Hypertensive heart disease with heart failure; I50.9 Heart failure, unspecified; Z79.51 Long term (current) use of inhaled steroids; R09.02 Hypoxemia; E78.00 Pure hypercholesterolemia, unspecified; J44.9 Chronic obstructive pulmonary disease, unspecified; Z87.891 Personal history of nicotine dependence; Z86.16 Personal history of COVID-19; Z79.82 Long term (current) use of aspirin; Z79.899 Other long term (current) drug therapy
CPT/HCPCS: 0241U; 36415; 36600; 71045; 80048; 80053; 80061; 81003; 82803; 83036; 83605; 83735; 83880; 84484; 85025; 85610; 85730; 87040; 93005; 94640; 94660; 94761; 96365; 96375; 97162; 99285; A9270-GY; J0696; J1650; J2930; J3490; J7512; J7620-GY

== ENCOUNTER 2025-03-23 14:08 | Inpatient (IN) | payer MEDICARE ==
[2025-03-23] MEDS ORDERED: Sodium Chloride 0.9% 10 ML Syringe FLUSH PRN (14:33)
[2025-03-23 14:52] LABS: BASOPHILS ABSOLUTE AUTO 0.0 K/mm3 (0.0-0.2); BASOPHILS PERCENT AUTO 0.3 % (0.0-1.0); EOSINOPHILS ABSOLUTE AUTO 0.1 K/mm3 (0.0-0.4); EOSINOPHILS PERCENT AUTO 1.4 % (0.0-6.0); IMMATURE GRAN ABSOLUTE AUTO 0.12 K/mm3 (0.00-0.05); IMMATURE GRAN PERCENT AUTO 1.2 % (0.0-0.4); LYMPHOCYTES ABSOLUTE AUTO 1.4 K/mm3 (1.0-4.8); LYMPHOCYTES PERCENT AUTO 13.8 % (24.0-44.0); MEAN PLATELET VOLUME 10.3 fl (9.4-12.4); MONOCYTES ABSOLUTE AUTO 1.3 K/mm3 (0.0-0.8); MONOCYTES PERCENT AUTO 13.2 % (0.0-8.0); NEUTROPHILS ABSOLUTE AUTO 6.9 K/mm3 (1.8-7.7); NEUTROPHILS PERCENT AUTO 70.1 % (41.0-71.0); NRBC ABSOLUTE 0.00 (0.00-0.02); NRBC PERCENT 0.0 % (0.0-0.2); PLATELET COUNT,PLT 173 K/mm3 (150-400); RED BLOOD CELL COUNT 5.36 M/mm3 (4.52-5.90); WHITE BLOOD CELL COUNT,WBC 9.91 K/mm3 (3.9-11.3)
[2025-03-23 15:20] LABS: A/G RATIO 1.0 (1-2); ALANINE AMINOTRANSFERASE,ALT 39.0 U/L (16-63); ASPARTATE AMNIOTRANSFERASE,AST 19.0 U/L (15-37); BILIRUBIN TOTAL 0.5 mg/dL (0.2-1.0); BLOOD UREA NITROGEN,BUN 32.0 mg/dL (7-18); CARBON DIOXIDE,CO2 21.0 mEq/L (21-32); CHLORIDE,CL 105.0 mEq/L (98-107); CREATININE 1.3 mg/dL (0.7-1.3); EST CRCL DRUG DOSING (CG) 44.25 mL/min; ESTIMATED GFR 54.0 mL/min (>60); GLUCOSE RANDOM 109.0 mg/dL (70-99); POTASSIUM,K 5.1 mEq/L (3.5-5.1); PROTEIN TOTAL,TP 6.7 g/dl (6.4-8.2); SODIUM,NA 136.0 mEq/L (136-145); TROPONIN I HIGH SENSITIVITY 58.0 pg/mL (<=76)
[2025-03-23] MEDS ORDERED: Naloxone 0.4 MG/ML SDV IVPUSH PRN (17:08)
[2025-03-23] MEDS ORDERED: Sennosides/Docusate Sodium 50-8.6 MG Tab PO PRN (17:08)
[2025-03-23] MEDS ORDERED: Ondansetron 4 MG/2 ML SDV IV PRN (17:08)
[2025-03-23 17:42] LABS: TSH 1.981 uIU/mL (0.358-3.74)
[2025-03-23] MEDS: Heparin Sodium 5,000 Units/ML Vial IVPUSH ONE (19:02)
[2025-03-23] MEDS: Heparin Sodium/D5W 250 ML IV SCH (19:22)
[2025-03-23 20:26] LABS: APPEARANCE,URINE CLEAR (Clear); GLUCOSE,URINE TRACE (Negative); OCCULT BLOOD,URINE NEGATIVE (Negative)
[2025-03-23] MEDS: Ondansetron 4 MG Tab.DIS PO PRN (21:27)
[2025-03-24 07:27] LABS: BASOPHILS ABSOLUTE AUTO 0.0 K/mm3 (0.0-0.2); BASOPHILS PERCENT AUTO 0.2 % (0.0-1.0); EOSINOPHILS ABSOLUTE AUTO 0.1 K/mm3 (0.0-0.4); EOSINOPHILS PERCENT AUTO 1.6 % (0.0-6.0); IMMATURE GRAN ABSOLUTE AUTO 0.10 K/mm3 (0.00-0.05); IMMATURE GRAN PERCENT AUTO 1.2 % (0.0-0.4); LYMPHOCYTES ABSOLUTE AUTO 1.5 K/mm3 (1.0-4.8); LYMPHOCYTES PERCENT AUTO 17.4 % (24.0-44.0); MEAN PLATELET VOLUME 10.6 fl (9.4-12.4); MONOCYTES ABSOLUTE AUTO 1.1 K/mm3 (0.0-0.8); MONOCYTES PERCENT AUTO 12.3 % (0.0-8.0); NEUTROPHILS ABSOLUTE AUTO 5.7 K/mm3 (1.8-7.7); NEUTROPHILS PERCENT AUTO 67.3 % (41.0-71.0); NRBC ABSOLUTE 0.00 (0.00-0.02); NRBC PERCENT 0.0 % (0.0-0.2); PLATELET COUNT,PLT 156 K/mm3 (150-400); RED BLOOD CELL COUNT 4.87 M/mm3 (4.52-5.90); WHITE BLOOD CELL COUNT,WBC 8.51 K/mm3 (3.9-11.3)
[2025-03-24 07:49] LABS: A/G RATIO 0.9 (1-2); ALANINE AMINOTRANSFERASE,ALT 33.0 U/L (16-63); ASPARTATE AMNIOTRANSFERASE,AST 17.0 U/L (15-37); BILIRUBIN TOTAL 0.5 mg/dL (0.2-1.0); BLOOD UREA NITROGEN,BUN 30.0 mg/dL (7-18); CARBON DIOXIDE,CO2 24.0 mEq/L (21-32); CHLORIDE,CL 106.0 mEq/L (98-107); CREATININE 1.2 mg/dL (0.7-1.3); EST CRCL DRUG DOSING (CG) 47.93 mL/min; ESTIMATED GFR 59.0 mL/min (>60); GLUCOSE RANDOM 126.0 mg/dL (70-99); PHOSPHORUS 4.5 mg/dL (2.6-4.7); POTASSIUM,K 4.9 mEq/L (3.5-5.1); PROTEIN TOTAL,TP 6.2 g/dl (6.4-8.2); SODIUM,NA 138.0 mEq/L (136-145)
[2025-03-24 17:21] VITALS: BP 116/89; PULSE 82
== END 2025-03-24 17:10 | disposition home or self-care (01) | DRG 309 ==
LOC: JD.ED 14:08 → JD.ICU 16:15
PROVIDERS: ADMIT Student in an Organized Health Care Education/Training Program; ATTEND Student in an Organized Health Care Education/Training Program
DX: I48.91 Unspecified atrial fibrillation (principal); I50.32 Chronic diastolic (congestive) heart failure; I10 Essential (primary) hypertension; J44.89 Other specified chronic obstructive pulmonary disease; I48.92 Unspecified atrial flutter; H91.90 Unspecified hearing loss, unspecified ear; H54.7 Unspecified visual loss; Z79.51 Long term (current) use of inhaled steroids; E78.00 Pure hypercholesterolemia, unspecified; I11.0 Hypertensive heart disease with heart failure; I25.10 Atherosclerotic heart disease of native coronary artery without angina pectoris; G47.30 Sleep apnea, unspecified; K21.9 Gastro-esophageal reflux disease without esophagitis; M54.9 Dorsalgia, unspecified; N40.0 Benign prostatic hyperplasia without lower urinary tract symptoms; G89.29 Other chronic pain; G62.9 Polyneuropathy, unspecified; E66.9 Obesity, unspecified; Z68.26 Body mass index [BMI] 26.0-26.9, adult; Z85.828 Personal history of other malignant neoplasm of skin; Z88.8 Allergy status to other drugs, medicaments and biological substances; Z79.899 Other long term (current) drug therapy; Z79.82 Long term (current) use of aspirin; Z86.16 Personal history of COVID-19; Z98.890 Other specified postprocedural states; Z87.891 Personal history of nicotine dependence
CPT/HCPCS: 36415; 70450; 70450-26; 71045; 71045-26; 80053; 81003; 83036; 83735; 83880; 84100; 84443; 84484; 85025; 85730; 93005; 93010; 93306; 94640; 94660; 94761; 97112-GP; 97116-GP; 97162-GP; 99285; A9270-GY; J1644; J7040

== ENCOUNTER 2025-05-09 17:30 | Inpatient (IN) | payer MEDICARE ==
[2025-05-09 19:02] LABS: BASOPHILS ABSOLUTE AUTO 0.0 K/mm3 (0.0-0.2); BASOPHILS PERCENT AUTO 0.3 % (0.0-1.0); EOSINOPHILS ABSOLUTE AUTO 0.1 K/mm3 (0.0-0.4); EOSINOPHILS PERCENT AUTO 0.8 % (0.0-6.0); IMMATURE GRAN ABSOLUTE AUTO 0.26 K/mm3 (0.00-0.05); IMMATURE GRAN PERCENT AUTO 1.9 % (0.0-0.4); LYMPHOCYTES ABSOLUTE AUTO 1.4 K/mm3 (1.0-4.8); LYMPHOCYTES PERCENT AUTO 10.3 % (24.0-44.0); MEAN PLATELET VOLUME 10.1 fl (9.4-12.4); MONOCYTES ABSOLUTE AUTO 2.0 K/mm3 (0.0-0.8); MONOCYTES PERCENT AUTO 15.1 % (0.0-8.0); NEUTROPHILS ABSOLUTE AUTO 9.7 K/mm3 (1.8-7.7); NEUTROPHILS PERCENT AUTO 71.6 % (41.0-71.0); NRBC ABSOLUTE 0.02 (0.00-0.02); NRBC PERCENT 0.1 % (0.0-0.2); PLATELET COUNT,PLT 203 K/mm3 (150-400); RED BLOOD CELL COUNT 5.16 M/mm3 (4.52-5.90); WHITE BLOOD CELL COUNT,WBC 13.55 K/mm3 (3.9-11.3)
[2025-05-09 19:17] LABS: APPEARANCE,URINE CLEAR (Clear); GLUCOSE,URINE 2+ (Negative); OCCULT BLOOD,URINE NEGATIVE (Negative)
[2025-05-09 19:33] LABS: A/G RATIO 0.9 (1-2); ALANINE AMINOTRANSFERASE,ALT 45.0 U/L (16-63); ASPARTATE AMNIOTRANSFERASE,AST 19.0 U/L (15-37); BILIRUBIN TOTAL 0.9 mg/dL (0.2-1.0); BLOOD UREA NITROGEN,BUN 30.0 mg/dL (7-18); CARBON DIOXIDE,CO2 23.0 mEq/L (21-32); CHLORIDE,CL 101.0 mEq/L (98-107); CREATINE KINASE,CK 51.0 U/L (39-308); CREATININE 1.4 mg/dL (0.7-1.3); EST CRCL DRUG DOSING (CG) 40.34 mL/min; ESTIMATED GFR 49.0 mL/min (>60); GLUCOSE RANDOM 150.0 mg/dL (70-99); POTASSIUM,K 5.0 mEq/L (3.5-5.1); PROTEIN TOTAL,TP 6.7 g/dl (6.4-8.2); SODIUM,NA 133.0 mEq/L (136-145)
[2025-05-09 19:36] LABS: TROPONIN I HIGH SENSITIVITY 86.0 pg/mL (<=76)
[2025-05-09 19:42] LABS: EPITHELIAL CELLS,URINE 0-5 /hpf (0-5)
[2025-05-09] MEDS: cefTRIAXone 1 GM in Water For Injection, Sterile 10 ML IVPUSH ONE (21:15)
[2025-05-10 05:58] LABS: BASOPHILS ABSOLUTE AUTO 0.0 K/mm3 (0.0-0.2); BASOPHILS PERCENT AUTO 0.3 % (0.0-1.0); EOSINOPHILS ABSOLUTE AUTO 0.2 K/mm3 (0.0-0.4); EOSINOPHILS PERCENT AUTO 1.7 % (0.0-6.0); IMMATURE GRAN ABSOLUTE AUTO 0.24 K/mm3 (0.00-0.05); IMMATURE GRAN PERCENT AUTO 2.7 % (0.0-0.4); LYMPHOCYTES ABSOLUTE AUTO 1.6 K/mm3 (1.0-4.8); LYMPHOCYTES PERCENT AUTO 17.7 % (24.0-44.0); MEAN PLATELET VOLUME 10.4 fl (9.4-12.4); MONOCYTES ABSOLUTE AUTO 1.4 K/mm3 (0.0-0.8); MONOCYTES PERCENT AUTO 16.1 % (0.0-8.0); NEUTROPHILS ABSOLUTE AUTO 5.5 K/mm3 (1.8-7.7); NEUTROPHILS PERCENT AUTO 61.5 % (41.0-71.0); NRBC ABSOLUTE 0.00 (0.00-0.02); NRBC PERCENT 0.0 % (0.0-0.2); PLATELET COUNT,PLT 159 K/mm3 (150-400); RED BLOOD CELL COUNT 4.85 M/mm3 (4.52-5.90); WHITE BLOOD CELL COUNT,WBC 8.92 K/mm3 (3.9-11.3)
[2025-05-10 06:28] LABS: A/G RATIO 0.8 (1-2); ALANINE AMINOTRANSFERASE,ALT 33.0 U/L (16-63); ASPARTATE AMNIOTRANSFERASE,AST 14.0 U/L (15-37); BILIRUBIN TOTAL 0.9 mg/dL (0.2-1.0); BLOOD UREA NITROGEN,BUN 28.0 mg/dL (7-18); CARBON DIOXIDE,CO2 24.0 mEq/L (21-32); CHLORIDE,CL 102.0 mEq/L (98-107); CREATININE 1.3 mg/dL (0.7-1.3); EST CRCL DRUG DOSING (CG) 43.44 mL/min; ESTIMATED GFR 54.0 mL/min (>60); GLUCOSE RANDOM 119.0 mg/dL (70-99); PHOSPHORUS 3.7 mg/dL (2.6-4.7); POTASSIUM,K 4.3 mEq/L (3.5-5.1); PROTEIN TOTAL,TP 6.1 g/dl (6.4-8.2); SODIUM,NA 135.0 mEq/L (136-145); TROPONIN I HIGH SENSITIVITY 68.0 pg/mL (<=76)
[2025-05-10] MEDS ORDERED: cefTRIAXone 1 GM in Water For Injection, Sterile 10 ML IVPUSH SCH (21:00)
[2025-05-11 00:40] VITALS: BP 99/58
[2025-05-11 04:03] VITALS: PULSE 68
== END 2025-05-11 15:05 | disposition home or self-care (01) | DRG 281 ==
LOC: JD.ED 17:30 → JD.MS 21:01
PROVIDERS: ADMIT Family Medicine; ATTEND Family Medicine
PROC: 5A09357 Assistance with Respiratory Ventilation, Less than 24 Consecutive Hours, Continuous Positive Airway Pressure (ICD-10-PCS; principal; 2025-05-09)
DX: I21.A1 Myocardial infarction type 2 (principal); J18.9 Pneumonia, unspecified organism; E87.1 Hypo-osmolality and hyponatremia; I42.1 Obstructive hypertrophic cardiomyopathy; I13.0 Hypertensive heart and chronic kidney disease with heart failure and stage 1 through stage 4 chronic kidney disease, or unspecified chronic kidney disease; I48.92 Unspecified atrial flutter; N17.9 Acute kidney failure, unspecified; R55 Syncope and collapse; I95.1 Orthostatic hypotension; I50.9 Heart failure, unspecified; G47.30 Sleep apnea, unspecified; G62.9 Polyneuropathy, unspecified; J30.2 Other seasonal allergic rhinitis; H91.90 Unspecified hearing loss, unspecified ear; H54.7 Unspecified visual loss; I65.23 Occlusion and stenosis of bilateral carotid arteries; E86.0 Dehydration; N18.31 Chronic kidney disease, stage 3a; J44.89 Other specified chronic obstructive pulmonary disease; K21.9 Gastro-esophageal reflux disease without esophagitis; E78.00 Pure hypercholesterolemia, unspecified; E66.9 Obesity, unspecified; M10.9 Gout, unspecified; G89.29 Other chronic pain; M54.9 Dorsalgia, unspecified; R79.89 Other specified abnormal findings of blood chemistry; Z79.01 Long term (current) use of anticoagulants; Z79.51 Long term (current) use of inhaled steroids; Z68.28 Body mass index [BMI] 28.0-28.9, adult; I10 Essential (primary) hypertension; Z85.820 Personal history of malignant melanoma of skin; Z98.890 Other specified postprocedural states; Z88.8 Allergy status to other drugs, medicaments and biological substances; Z79.899 Other long term (current) drug therapy; Z86.16 Personal history of COVID-19
CPT/HCPCS: 36415; 71045; 80053; 81001; 82550; 83605; 83735; 83880; 84484; 85025; 93005; 99285; A9270; 83036; 84100; 93880; 93880-26; 94640; 94660; J0696; J1271; J7030